=== PATIENT | female | born 1985 | race Caucasian/White ===

== ENCOUNTER 2018-08-14 22:38 | Emergency (ER) | payer BC, SELFPAY ==
--- NOTE | 2018-08-14 23:08 | EDPHYS ---
Physician Documentation [facility] Name: Melissa August Age: 33 yrs Sex: Female : 1985 Arrival Date: 08/14/2018 Time: 22:41 Bed 23 Private MD: Blas Patino ED Physician Jh Hogan HPI: 08/14 23:03 This 33 yrs old Female presents to ER via Ambulatory with complaints of jennifer Laceration to finger. 23:03 The patient or guardian reports decreased range of motion, pain, tenderness. The jennifer complaints affect the PIP of left little finger. Context: The problem was sustained at home. Onset: The symptoms/episode began/occurred just prior to arrival. Modifying factors: The symptoms are alleviated by elevation, holding still, ice/coldpack to affected area, the symptoms are aggravated by movement, dependent position. Associated signs and symptoms: The patient has no apparent associated signs or symptoms. Severity of symptoms: At their worst the symptoms were mild, in the emergency department the symptoms are unchanged. The patient has not experienced similar symptoms in the past. 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 - Social history:: Smoking status: Patient uses tobacco products, denies chronic smoking, but will smoke occasionally. - Ebola Screening: : No symptoms or risks identified at this time. - Family history:: not pertinent. ROS: 23:03 Constitutional: Negative for fever, chills, and weight loss, Eyes: Negative for injury, jennifer pain, redness, and discharge, ENT: Negative for injury, pain, and discharge, Neck: Negative for injury, pain, and swelling, Cardiovascular: Negative for chest pain, palpitations, and edema, Respiratory: Negative for shortness of breath, cough, wheezing, and pleuritic chest pain, Abdomen/GI: Negative for abdominal pain, nausea, vomiting, diarrhea, and constipation, Back: Negative for injury and pain, : Negative for injury, bleeding, discharge, and swelling, Skin: Negative for injury, rash, and discoloration, Neuro: Negative for headache, weakness, numbness, tingling, and seizure, Psych: Negative for depression, anxiety, suicide ideation, homicidal ideation, and hallucinations, Allergy/Immunology: Negative for hives, rash, and allergies, Endocrine: Negative for neck swelling, polydipsia, polyuria, polyphagia, and marked weight changes, Hematologic/Lymphatic: Negative for swollen nodes, abnormal bleeding, and unusual bruising. 23:03 MS/extremity: Positive for decreased range of motion, pain, swelling, tenderness, of the dorsal aspect of middle phalanx of left little finger. Exam: 23:03 Constitutional: This is a well developed, well nourished patient who is awake, alert, jennifer and in no acute distress. Head/Face: Normocephalic, atraumatic. Eyes: Pupils equal round and reactive to light, extra-ocular motions intact. Lids and lashes normal. Conjunctiva and sclera are non-icteric and not injected. Cornea within normal limits. Periorbital areas with no swelling, redness, or edema. ENT: Nares patent. No nasal discharge, no septal abnormalities noted. Tympanic membranes are normal and external auditory canals are clear. Oropharynx with no redness, swelling, or masses, exudates, or evidence of obstruction, uvula midline. Mucous membranes moist. Neck: Trachea midline, no thyromegaly or masses palpated, and no cervical lymphadenopathy. Supple, full range of motion without nuchal rigidity, or vertebral point tenderness. No Meningismus. Chest/axilla: Normal chest wall appearance and motion. Nontender with no deformity. No lesions are appreciated. Cardiovascular: Regular rate and rhythm with a normal S1 and S2. No gallops, murmurs, or rubs. Normal PMI, no JVD. No pulse deficits. Respiratory: Lungs have equal breath sounds bilaterally, clear to auscultation and percussion. No rales, rhonchi or wheezes noted. No increased work of breathing, no retractions or nasal flaring. Abdomen/GI: Soft, non-tender, with normal bowel sounds. No distension or tympany. No guarding or rebound. No evidence of tenderness throughout. Back: No spinal tenderness. No costovertebral tenderness. Full range of motion. Female : Normal external genitalia. Skin: Warm, dry with normal turgor. Normal color with no rashes, no lesions, and no evidence of cellulitis. Neuro: Awake and alert, GCS 15, oriented to person, place, time, and situation. Cranial nerves II-XII grossly intact. Motor strength 5/5 in all extremities. Sensory grossly intact. Cerebellar exam normal. Normal gait. Psych: Awake, alert, with orientation to person, place and time. Behavior, mood, and affect are within normal limits. 23:03 Musculoskeletal/extremity: Extremities: noted in the dorsal aspect of middle phalanx of left little finger: decreased ROM, pain. Vital Signs: 22:55 BP 133 / 99; Pulse 103; Resp 16 S; Temp 98.5(O); Pulse Ox 99% on R/A; Weight 95.25 kg bb (R); Height 5 ft. 4 in. (162.56 cm) (R); Pain 6/10; 23:57 BP 133 / 71; Pulse 92; Resp 16; Pulse Ox 98% on R/A; Pain 5/10; aa1 22:55 Body Mass Index 36.05 (95.25 kg, 162.56 cm) MDM: 22:54 Patient medically screened. [facility] 23:05 Data reviewed: vital signs, nurses notes, radiologic studies. 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 Exp: aa1 05/13/2020. Lot #: [id number]. } Route: IM; Site: right deltoid; 23:12 Drug: Anderson 10 mg-325 mg 1 tabs Route: PO; aa1 Disposition: 08/14/18 23:08 Discharged to Home. Impression: Laceration without foreign body of left hand, Contusion of left hand. - Condition is Stable. - Discharge Instructions: Contusion, Laceration Care, Adult, Contusion, [id number], Laceration Care, Adult, [id number]. - Prescriptions for Tylenol- Codeine #3 300-30 mg Oral Tablet - take 2 tablets by ORAL route every 6 hours As needed; 26 tablet. Motrin IB 200 mg Oral Tablet - take 2 tablet by ORAL route every 6 hours As needed as needed with food; 30 tablet. - Medication Reconciliation Form, Thank You Letter, Antibiotic Education, Prescription Opioid Use form. - Follow up: Blas Patino; When: 2 - 3 days; Reason: Recheck today's complaints, Continuance of care, Re-evaluation by your physician. - Problem is new. - Symptoms have improved. Signatures: Dispatcher [employer] EDZuleika Salcedo RN RN aa1 Jh Hogan MD MD cha Ballard, Brenda, RN RN bb Corrections: (The following items were deleted from the chart) 23:59 23:08 08/14/2018 23:08 Discharged to Home. Impression: Laceration without foreign body aa1 of left hand; Contusion of left hand. Condition is Stable. Discharge Instructions: Contusion, Laceration Care, Adult, Contusion, [id number], Laceration Care, Adult, [id number]. Prescriptions for Tylenol-Codeine #3 300-30 mg Oral Tablet - take 2 tablets by ORAL route every 6 hours As needed; 26 tablet, Motrin IB 200 mg Oral Tablet - take 2 tablet by ORAL route every 6 hours As needed as needed with food; 30 tablet. and Forms are Medication Reconciliation Form, Thank You Letter, Antibiotic Education, Prescription Opioid Use. Follow up: Blas Patino; When: 2 - 3 days; Reason: Recheck today's complaints, Continuance of care, Re-evaluation by your physician. Problem is new. Symptoms have improved. jennifer
--- NOTE | 2018-08-14 23:08 | ER ---
Nurse's Notes [facility] Name: Melissa August Age: 33 yrs Sex: Female : 1985 Arrival Date: 08/14/2018 Time: 22:41 Bed 23 Private MD: Blas Patino Diagnosis: Laceration without foreign body of left hand;Contusion of left hand Presentation: 08/14 22:52 Presenting complaint: Patient states: she was washing dishes earlier tonight and broke bb a place cutting her left pinky finger, pt thinks she may have something in the cut because it is very painful and is swelling. Transition of care: patient was not received from another setting of care. Onset of symptoms was August 14, 2018. Risk Assessment: Do you want to hurt yourself or someone else? Patient reports no desire to harm self or others. Initial Sepsis Screen: Does the patient meet any 2 criteria? No. Patient's initial sepsis screen is negative. Does the patient have a suspected source of infection? No. Patient's initial sepsis screen is negative. Care prior to arrival: None. 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 - Social history:: Smoking status: Patient uses tobacco products, denies chronic smoking, but will smoke occasionally. - Ebola Screening: : No symptoms or risks identified at this time. - Family history:: not pertinent. Screenin:00 Abuse screen: Denies threats or abuse. Denies injuries from another. Nutritional aa1 screening: No deficits noted. Tuberculosis screening: No symptoms or risk factors identified. Fall Risk None identified. Assessment: 23:00 General: Appears in no apparent distress. comfortable, Behavior is calm, cooperative, aa1 appropriate for age. Pain: Complains of pain in left little finger. Neuro: Level of Consciousness is awake, alert, obeys commands, Oriented to person, place, time, situation, Moves all extremities. Full function. Respiratory: Airway is patent Respiratory effort is even, unlabored, Respiratory pattern is regular, symmetrical. GI: No signs and/or symptoms were reported involving the gastrointestinal system. : No signs and/or symptoms were reported regarding the genitourinary system. EENT: No signs and/or symptoms were reported regarding the EENT system. Derm: Skin is intact, is healthy with good turgor, Skin is pink, warm \T\ dry. Musculoskeletal: Circulation, motion, and sensation intact. Capillary refill < 3 seconds. Injury Description: Laceration sustained to PIP of left little finger is superficial, 0.5 to 2.5 cm long, not bleeding. 23:57 Reassessment: Patient appears in no apparent distress at this time. Patient is alert, aa1 oriented x 3, equal unlabored respirations, skin warm/dry/pink. Discussed d/c \T\ f/u instructions with pt \T\ family; denies questions or concerns at this time. Vital Signs: 22:55 BP 133 / 99; Pulse 103; Resp 16 S; Temp 98.5(O); Pulse Ox 99% on R/A; Weight 95.25 kg bb (R); Height 5 ft. 4 in. (162.56 cm) (R); Pain 6/10; 23:57 BP 133 / 71; Pulse 92; Resp 16; Pulse Ox 98% on R/A; Pain 5/10; aa1 22:55 Body Mass Index 36.05 (95.25 kg, 162.56 cm) ED Course: 22:41 Patient arrived in ED. ds1 22:42 Blas Patino MD is Private Physician. ds1 22:54 Triage completed. bb 22:54 Jh Hogan MD is Attending Physician. jennifer 22:55 Arm band placed on Patient placed in an exam room, on a stretcher, on pulse oximetry. bb 22:56 Zuleika Castelan RN is Primary Nurse. aa1 23:00 Patient has correct armband on for positive identification. Bed in low position. Call aa1 light in reach. Pulse ox on. NIBP on. 23:08 Blas Patino MD is Referral Physician. jennifer 23:48 Hand Left 3 View XRAY In Process Unspecified. EDMS 23:57 No provider procedures requiring assistance completed. Patient did not have IV access aa1 during this emergency room visit. 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 Exp: aa1 05/13/2020. Lot #: [id number]. } Route: IM; Site: right deltoid; 23:12 Drug: Laurel 10 mg-325 mg 1 tabs Route: PO; aa1 Outcome: 23:08 Discharge ordered by . jennifer 23:57 Discharged to home ambulatory, with significant other. aa1 23:57 Condition: good 23:57 Discharge instructions given to patient, significant other, Instructed on discharge instructions, follow up and referral plans. medication usage, Demonstrated understanding of instructions, follow-up care, medications, Prescriptions given X 2. 23:59 Patient left the ED. aa1 Signatures: Dispatcher [employer] EDZuleika Salcedo RN RN aa1 Jh Hogan MD MD cha Sanford, Demi ds1 Lissett Blair RN RN bb
[2018-08-14] MEDS ORDERED: HYDROCODONE/APAP 10/325 TAB ONE (23:26)
[2018-08-14] MEDS ORDERED: TETANUS & DIPHTHERIA TOX,ADULT 0.5 ML VIAL ONE (23:26)
--- NOTE | 2018-08-15 09:06 | RAD REPORT ---
EXAM DESCRIPTION: RAD - Hand Left 3 View - 08/14/2018 11:48 pm CLINICAL HISTORY: Left hand pain, trauma, laceration dorsal margin fifth PIP joint COMPARISON: None. FINDINGS: No fracture, dislocation or periosteal reaction noted. No foreign body or other soft tissu e abnormality. IMPRESSION: Negative left hand examination.
== END 2018-08-14 23:59 | disposition home or self-care (01) ==
LOC: ER 22:38
DX: S61.217A Laceration without foreign body of left little finger without damage to nail, initial encounter (principal); S60.222A Contusion of left hand, initial encounter; W45.8XXA Other foreign body or object entering through skin, initial encounter; Y93.9 Activity, unspecified; Y92.009 Unspecified place in unspecified non-institutional (private) residence as the place of occurrence of the external cause; Z23 Encounter for immunization; Z72.0 Tobacco use
CPT/HCPCS: 90471; 90714; 99284

== ENCOUNTER 2018-09-15 21:39 | Emergency (ER) | payer SELFPAY ==
[2018-09-15 22:36] LABS: Absolute Lymphocytes (CBC) 1.8 K/uL (0.7-4.9); Basophils % 1.1 % (0-1.3); Hematocrit 36.1 % (36.0-45.0); Lymphocytes % 15.8 % (15.3-44.8); MPV 8.6 fL (7.6-11.3)
[2018-09-15] MEDS ORDERED: NA CHLORIDE 0.9% 1,000 ML ONE (22:44)
[2018-09-15 22:48] LABS: Albumin 3.4 g/dL (3.4-5.0); Bilirubin Direct 0.3 mg/dL (0-0.2); Bilirubin Total 0.6 mg/dL (0.2-1.0); Potassium 3.9 mmol/L (3.5-5.1); Protein, Total 8.6 g/dL (6.4-8.2)
[2018-09-15] MEDS ORDERED: ONDANSETRON 4 MG/2 ML VIAL ONE ×2 (23:39→23:54)
[2018-09-15 23:40] LABS: Urine Blood NEGATIVE (NEG); Urine Glucose NEGATIVE (NEG); Urine Protein NEGATIVE (NEG)
[2018-09-15 23:49] LABS: Urine Bacteria <20 /HPF (<20); Urine Culture Reflex Order NOT NEEDED; Urine RBC <5 /HPF (NONE SEEN)
[2018-09-15] MEDS ORDERED: CEFTRIAXONE/SWI 1gm 1 GM/10 ML SYR ONE (23:50)
[2018-09-16] MEDS ORDERED: PROMETHAZINE 25 MG/ML VIAL ONE (00:41)
--- NOTE | 2018-09-16 01:50 | ER ---
Nurse's Notes [facility] Name: Melissa August Age: 33 yrs Sex: Female : 1985 Arrival Date: 09/15/2018 Time: 21:43 Bed 24 Private MD: Diagnosis: Dysuria;Unspecified abdominal pain;Nausea and vomiting Presentation: 09/15 21:45 Presenting complaint: Patient states: "I've had a UTI for awhile and now I'm having aj1 headaches, nausea, and chills" Reports fever and abdominal cramps that has been intermittent for the past 2 weeks. Transition of care: patient was not received from another setting of care. Onset of symptoms was August 2018. Risk Assessment: Do you want to hurt yourself or someone else? Patient reports no desire to harm self or others. Initial Sepsis Screen: Does the patient meet any 2 criteria? HR > 90 bpm. No. Patient's initial sepsis screen is negative. Does the patient have a suspected source of infection? Yes: Dysuria/Frequency/Urgency/UTI. Care prior to arrival: None. 21:45 Method Of Arrival: Ambulatory [facility] 21:45 Acuity: ARCELIA 3 aj1 Triage Assessment: 21:47 Headache History: Denies prior headaches. General: Appears in no apparent distress. aj1 comfortable, Behavior is calm, cooperative, appropriate for age. Pain: Complains of pain in forehead and suprapubic area Pain currently is 5 out of 10 on a pain scale. Pain began 2 weeks ago Also complains of nausea. Neuro: Level of Consciousness is awake, alert, obeys commands, Oriented to person, place, time, situation. Cardiovascular: Patient's skin is warm and dry. Respiratory: Airway is patent Respiratory effort is even, unlabored, Respiratory pattern is regular, symmetrical. 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 - Social history:: Smoking status: Patient/guardian denies using tobacco. - Ebola Screening: : Patient denies travel to an Ebola-affected area in the 21 days before illness onset. Screenin:47 Abuse screen: Denies threats or abuse. Denies injuries from another. Nutritional rv screening: No deficits noted. Tuberculosis screening: No symptoms or risk factors identified. Fall Risk None identified. Assessment: 22:31 General: Appears in no apparent distress. comfortable, Behavior is calm, cooperative. rv Pain: Complains of pain in head. Neuro: Level of Consciousness is awake, alert, obeys commands, Oriented to person, place, time, situation. Cardiovascular: Patient's skin is warm and dry. Respiratory: Airway is patent. GI: No signs and/or symptoms were reported involving the gastrointestinal system. : No signs and/or symptoms were reported regarding the genitourinary system. EENT: No signs and/or symptoms were reported regarding the EENT system. Derm: Skin is intact. Musculoskeletal: No signs and/or symptoms reported regarding the musculoskeletal system. 09/16 00:55 Reassessment: Patient appears in no apparent distress at this time. Patient and/or rv family updated on plan of care and expected duration. Pain level reassessed. Patient is alert, oriented x 3, equal unlabored respirations, skin warm/dry/pink. awaiting CT scan report. Vital Signs: 09/15 21:47 BP 141 / 84; Pulse 110; Resp 20; Temp 98.8; Pulse Ox 99% on R/A; Weight 97.52 kg (R); aj1 Height 5 ft. 4 in. (162.56 cm) (R); Pain 5/10; 23:47 BP 130 / 89; Pulse 98; Resp 16; Pulse Ox 98% on R/A; rv 09/16 00:00 BP 124 / 88; Pulse 95; Resp 15; Pulse Ox 98% on R/A; rv 00:30 BP 131 / 92; Pulse 103; Resp 14; Pulse Ox 98% on R/A; rv 01:00 BP 115 / 86; Pulse 103; Resp 16; Pulse Ox 96% on R/A; rv 01:30 BP 115 / 87; Pulse 109; Resp 16; Pulse Ox 96% on R/A; rv 09/15 21:47 Body Mass Index 36.90 (97.52 kg, 162.56 cm) aj1 ED Course: 09/15 21:43 Patient arrived in ED. mr 21:46 Triage completed. aj1 21:47 Arm band placed on Patient placed in an exam room. aj1 21:51 Neri Mak, TESSY is PHCP. pm1 21:51 Aravind Burroughs MD is Attending Physician. pm1 22:02 Joshua Olsen RN is Primary Nurse. rv 22:12 Inserted saline lock: 20 gauge in right antecubital area, using aseptic technique. rv Blood collected. 23:47 Patient has correct armband on for positive identification. Bed in low position. Call rv light in reach. Side rails up X 1. Adult w/ patient. Pulse ox on. NIBP on. 23:48 No provider procedures requiring assistance completed. rv 09/16 00:33 CT Abd/Pelvis - IV Contrast Only In Process Unspecified. EDMS 01:02 CT completed. Patient tolerated procedure well. Patient moved to CT via wheelchair. Patient moved back from CT. 01:39 IV discontinued, intact, bleeding controlled, No redness/swelling at site. Pressure rv dressing applied. Administered Medications: 09/15 22:30 Drug: NS 0.9% 1000 ml Route: IV; Rate: 1000 ml; Site: right antecubital; rv 23:46 Follow up: IV Status: Completed infusion; IV Intake: 1000ml rv 23:24 Drug: Zofran 4 mg Route: IVP; Site: right antecubital; ca1 23:46 Follow up: Response: No adverse reaction rv 23:45 Drug: Zofran 4 mg Route: IVP; Site: right antecubital; rv 09/16 00:56 Follow up: Response: No adverse reaction rv 09/15 23:46 Drug: Rocephin 1 grams Route: IV; Rate: calculated rate; Site: right antecubital; rv 09/16 00:57 Follow up: IV Status: Completed infusion rv 00:45 Drug: Phenergan 12.5 mg Route: IVP; Site: right antecubital; rv 00:56 Follow up: Response: Nausea is decreased rv Intake: 09/15 23:46 IV: 1000ml; Total: 1000ml. rv Outcome: 09/16 01:39 Discharged to home ambulatory, with family. rv Condition: good 01:49 Discharge ordered by . pm1 01:57 Discharge instructions given to patient, family, Instructed on discharge instructions, rv follow up and referral plans. medication usage, Demonstrated understanding of instructions, follow-up care, medications, Prescriptions given X 3. 01:57 Patient left the ED. rv Signatures: Dispatcher [employer] EDMary Duran, RN RN aj1 Germaine Suarez mr Whitney, Neri Navarro, TESSY MACHINE DESIGNER pm1 Joshua Olsen, ESTRELLA RN rv Jazlyn Smith RN RN ca1
--- NOTE | 2018-09-16 01:50 | EDPHYS ---
Physician Documentation [facility] Name: Melissa August Age: 33 yrs Sex: Female : 1985 Arrival Date: 09/15/2018 Time: 21:43 Bed 24 Private MD: ED Physician Aravind Burroughs HPI: 09/15 22:15 This 33 yrs old Female presents to ER via Ambulatory with complaints of pm1 Urinary Problem, Headache, Nausea. 22:15 The patient presents with urinary symptoms, frequency. Onset: The symptoms/episode pm1 began/occurred 2 week(s) ago. Modifying factors: The symptoms are alleviated by nothing, the symptoms are aggravated by nothing. Associated signs and symptoms: Pertinent positives: nausea, suprapubic abdominal cramping, subjective fever, Pertinent negatives: constipation, diarrhea, vomiting. Severity of symptoms: in the emergency department the symptoms are actually worse. The patient has experienced similar episodes in the past, a few times, and the symptoms today are exactly the same, to previous UTI. 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 - Social history:: Smoking status: Patient/guardian denies using tobacco. - Ebola Screening: : Patient denies travel to an Ebola-affected area in the 21 days before illness onset. ROS: 22:15 Positive for urinary frequency, Negative for flank pain. pm1 22:15 Constitutional: Negative for fever, chills, and weight loss, Neck: Negative for injury, pain, and swelling, Cardiovascular: Negative for chest pain, palpitations, and edema, Respiratory: Negative for shortness of breath, cough, wheezing, and pleuritic chest pain. 22:15 Back: Negative for injury and pain, MS/Extremity: Negative for injury and deformity, Skin: Negative for injury, rash, and discoloration. 22:15 Neuro: Negative for headache, weakness, numbness, tingling, and seizure. 22:15 Abdomen/GI: Positive for abdominal pain, nausea, of the suprapubic area, Negative for diarrhea, constipation. Exam: 22:15 Constitutional: This is a well developed, well nourished patient who is awake, alert, pm1 and in no acute distress. Head/Face: Normocephalic, atraumatic. Neck: Trachea midline, no thyromegaly or masses palpated, and no cervical lymphadenopathy. Supple, full range of motion without nuchal rigidity, or vertebral point tenderness. No Meningismus. Chest/axilla: Normal chest wall appearance and motion. Nontender with no deformity. No lesions are appreciated. Cardiovascular: Regular rate and rhythm with a normal S1 and S2. No gallops, murmurs, or rubs. Normal PMI, no JVD. No pulse deficits. Respiratory: Lungs have equal breath sounds bilaterally, clear to auscultation and percussion. No rales, rhonchi or wheezes noted. No increased work of breathing, no retractions or nasal flaring. Back: No spinal tenderness. No costovertebral tenderness. Full range of motion. Skin: Warm, dry with normal turgor. Normal color with no rashes, no lesions, and no evidence of cellulitis. MS/ Extremity: Pulses equal, no cyanosis. Neurovascular intact. Full, normal range of motion. 22:15 Abdomen/GI: Inspection: abdomen appears normal, Bowel sounds: normal, Palpation: soft, mild abdominal tenderness, in the suprapubic area, mass, is not appreciated, rebound tenderness, is not appreciated. 22:15 Neuro: Orientation: is normal, Cranial nerves: CN II- XII are normal as tested, Motor: is normal, moves all fours, Sensation: is normal, no obvious gross deficits. Vital Signs: 21:47 BP 141 / 84; Pulse 110; Resp 20; Temp 98.8; Pulse Ox 99% on R/A; Weight 97.52 kg (R); aj1 Height 5 ft. 4 in. (162.56 cm) (R); Pain 5/10; 23:47 BP 130 / 89; Pulse 98; Resp 16; Pulse Ox 98% on R/A; rv 09/16 00:00 BP 124 / 88; Pulse 95; Resp 15; Pulse Ox 98% on R/A; rv 00:30 BP 131 / 92; Pulse 103; Resp 14; Pulse Ox 98% on R/A; rv 01:00 BP 115 / 86; Pulse 103; Resp 16; Pulse Ox 96% on R/A; rv 01:30 BP 115 / 87; Pulse 109; Resp 16; Pulse Ox 96% on R/A; rv 09/15 21:47 Body Mass Index 36.90 (97.52 kg, 162.56 cm) aj1 MDM: 09/15 22:11 Patient medically screened. pm1 09/16 01:47 Data reviewed: vital signs. Data interpreted: Pulse oximetry: on room air is 96 %. pm1 Interpretation: normal. Counseling: I had a detailed discussion with the patient and/or guardian regarding: the historical points, exam findings, and any diagnostic results supporting the discharge/admit diagnosis, lab results, radiology results, the need for outpatient follow up, to return to the emergency department if symptoms worsen or persist or if there are any questions or concerns that arise at home. 01:47 ED course: Negative for acute changes CT abd/pelvis and urine micro negative. Will give pm1 patient pain medications and antiemetic. Will wait for pending urine culture prior to antibiotic therapy. . 09/15 22:15 Order name: Basic Metabolic Panel; Complete Time: 23:21 pm1 09/15 22:15 Order name: CBC with Diff; Complete Time: 23:21 pm1 09/15 22:15 Order name: Creatinine for Radiology; Complete Time: 23:21 pm1 09/15 22:15 Order name: Hepatic Function; Complete Time: 23:21 pm1 09/15 22:15 Order name: Urine Microscopic Only; Complete Time: 23:54 pm1 09/15 22:15 Order name: Urine Dipstick--Ancillary (enter results); Complete Time: 23:54 cm6 09/15 22:15 Order name: Urine --Ancillary (enter results); Complete Time: 23:54 cm6 09/15 23:21 Order name: CT Abd/Pelvis - IV Contrast Only pm1 09/15 22:15 Order name: IV Saline Lock; Complete Time: 22:30 pm1 09/15 22:15 Order name: Labs collected and sent; Complete Time: 22:30 pm1 09/15 22:15 Order name: Urine Dipstick-Ancillary (obtain specimen); Complete Time: 22:25 pm1 09/15 22:15 Order name: Urine Test (obtain specimen); Complete Time: 22:25 pm1 Administered Medications: 09/15 22:30 Drug: NS 0.9% 1000 ml Route: IV; Rate: 1000 ml; Site: right antecubital; rv 23:46 Follow up: IV Status: Completed infusion; IV Intake: 1000ml rv 23:24 Drug: Zofran 4 mg Route: IVP; Site: right antecubital; ca1 23:46 Follow up: Response: No adverse reaction rv 23:45 Drug: Zofran 4 mg Route: IVP; Site: right antecubital; rv 09/16 00:56 Follow up: Response: No adverse reaction rv 09/15 23:46 Drug: Rocephin 1 grams Route: IV; Rate: calculated rate; Site: right antecubital; rv 09/16 00:57 Follow up: IV Status: Completed infusion rv :45 Drug: Phenergan 12.5 mg Route: IVP; Site: right antecubital; rv 00:56 Follow up: Response: Nausea is decreased rv Disposition: 03:33 Co-signature as Attending Physician, Aravind Burroughs MD. rn Disposition: 09/16/18 01:49 Discharged to Home. Impression: Dysuria, Unspecified abdominal pain, Nausea and vomiting. - Condition is Stable. - Discharge Instructions: Abdominal Pain, Adult, Dysuria, Nausea and Vomiting, Adult. - Prescriptions for Bentyl 20 mg Oral Tablet - take 1 tablet by ORAL route every 6 hours As needed; 20 tablet. Tylenol- Codeine #3 300-30 mg Oral Tablet - take 2 tablets by ORAL route every 6 hours As needed; 20 tablet. promethazine 25 mg Oral Tablet - take 1 tablet by ORAL route every 6 hours As needed; 20 tablet. - Medication Reconciliation Form, Thank You Letter, Antibiotic Education, Prescription Opioid Use form. - Follow up: Emergency Department; When: As needed; Reason: Worsening of condition. Follow up: Private Physician; When: 2 - 3 days; Reason: Recheck today's complaints, Continuance of care, Re-evaluation by your physician. - Problem is new. - Symptoms have improved. Signatures: Dispatcher [employer] EDMary Duran RN RN aj1 Aravind Burroughs MD MD rn Marinas, Patrick, BUSINESS PROCESS REPRESENTATIVE BUSINESS PROCESS REPRESENTATIVE pm1 Joshua Olsen RN RN rv AcobJazlyn RN RN ca1 Corrections: (The following items were deleted from the chart) :57 01:49 09/16/2018 01:49 Discharged to Home. Impression: Dysuria; Unspecified abdominal rv pain; Nausea and vomiting. Condition is Stable. Forms are Medication Reconciliation Form, Thank You Letter, Antibiotic Education, Prescription Opioid Use. Follow up: Emergency Department; When: As needed; Reason: Worsening of condition. Follow up: Private Physician; When: 2 - 3 days; Reason: Recheck today's complaints, Continuance of care, Re-evaluation by your physician. Problem is new. Symptoms have improved. pm1
--- NOTE | 2018-09-16 11:41 | RAD REPORT ---
EXAM DESCRIPTION: CT - Abdomen Pelvis W Contrast - 09/16/2018 4:57 am CLINICAL HISTORY: 33-year-old female with abdominal pain, lower abdominal cramping TECHNIQUE: Axial CT imaging of the abdomen and pelvis was performed following the administration of intravenous contrast.. Sagittal and coronal reconstructed images were then performed. The CT stud y is performed according to ALARA (as low as reasonably achievable) or ALARA/IMAGE GENTLY, with autom atic adjustment of mA and/or kV according to patient size. Performed on: 09/16/2018 at 12:10 AM. CLINICAL HISTORY: None FINDINGS: Lung bases: The lung bases are clear. There is minimal right basilar atelectasis and/or fi brosis. Liver: The liver is enlarged and measures 20 cm in craniocaudal dimension. No focal hepatic abnormali ties are identified. Liver attenuation is within normal limits. Spleen: The spleen is enlarged and measures 16 cm in craniocaudal dimension. No focal splenic abnorma lities are identified. Gallbladder and bile duct: The gallbladder is surgically absent. There is no biliary ductal dilatat ion. Pancreas: The pancreas is grossly normal in size and configuration. Adrenal Glands: The adrenal glands are normal in size and configuration. Kidneys: The kidneys are normal in size and configuration. There is no evidence of hydronephrosis. Th ere is a punctate nonobstructing calcification in the lower pole of the right kidney. No definite ernesto id or cystic renal mass lesions are identified. Stomach: The stomach is grossly normal. There is no definite hiatal hernia. Bowel: The bowel gas pattern is non specific and non obstructive. Appendix: There is no CT evidence to suggest acute appendicitis. Free air: There is no evidence of free air. Free fluid: There is no evidence of free fluid. Vasculature: The aorta is normal in caliber and contour. 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 Lymphadenopathy: No pathologic lymphadenopathy is identified. Bladder: The bladder is partially distended and smooth in contour. Reproductive: The uterus is retroverted. There is a 4.7 x 4.1 x 5.5 cm benign-appearing right adnexal cyst presumably ovarian in nature. There is an approximately 3.0 x 2.4 cm left adnexal cyst. Bones: No acute osseous abnormalities are identified. Soft tissues: No focal soft tissue abnormalities are identified. IMPRESSION: 1. Approximately 5.5 cm benign-appearing right adnexal cyst. Follow-up pelvic ultrasound in 6-12 weeks. 2. Nonobstructing punctate calcification in the lower pole of the right kidney. 3. Hepatosplenomegaly. 4. Remote cholecystectomy. 5. 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 6. Retroverted uterus. Electronically signed by: Charlotte Michael DO 09/16/2018 1:12 AM CDT Due to temporary technical issues with the PACS/Fluency reporting system, reports are being signed by the in house radiologist as a courtesy to ensure prompt reporting. The interpreting radiologist is f ully responsible for the content of the report.
== END 2018-09-16 01:57 | disposition home or self-care (01) ==
LOC: ER 21:39
DX: R10.9 Unspecified abdominal pain (principal); R11.2 Nausea with vomiting, unspecified; Z86.718 Personal history of other venous thrombosis and embolism
CPT/HCPCS: 36415; 74177; 80048; 80076; 81003; 81015; 81025; 85025; 96361; 96365; 96375; 99284; J0696; J2405; J2550; J7030; Q9967

== ENCOUNTER 2018-09-24 01:17 | Observation (INO) | payer SELFPAY ==
[2018-09-24] MEDS ORDERED: FENTANYL CITR 100 MCG/2 ML ONE (02:27)
[2018-09-24 02:41] LABS: Absolute Lymphocytes (CBC) 1.6 K/uL (0.7-4.9); Basophils % 0.5 % (0-1.3); Hematocrit 34.6 % (36.0-45.0); Lymphocytes % 15.5 % (15.3-44.8); MPV 8.7 fL (7.6-11.3); RBC Red Blood Cell Count 3.82 M/uL (3.86-4.86)
[2018-09-24 02:42] LABS: Protime INR 1.24
[2018-09-24 03:00] LABS: Potassium 3.5 mmol/L (3.5-5.1); Sodium Level 139 mmol/L (136-145)
[2018-09-24 03:01] LABS: BUN Blood Urea Nitrogen 5 mg/dL (7-18); Bicarbonate 26 mmol/L (21-32); Glucose Level 114 mg/dL (74-106); Magnesium 2.3 mg/dL (1.8-2.4); NT PRO-BNP 72 pg/mL (<125)
[2018-09-24] MEDS ORDERED: ENOXAPARIN 100 MG/ML SYR SQ ONE (03:21)
--- NOTE | 2018-09-24 03:23 | ER ---
Nurse's Notes [facility] Name: Melissa August Age: 33 yrs Sex: Female : 1985 Arrival Date: 09/24/2018 Time: 01:21 Bed 6 Private MD: Blas Patino Diagnosis: Chest pain, unspecified Presentation: 09/24 01:32 Presenting complaint: Patient states: Pain to left rib area since last Tuesday, worse on lp1 respiration; Complaint of nausea. Transition of care: patient was not received from another setting of care. Onset of symptoms was September 24, 2018. Risk Assessment: Do you want to hurt yourself or someone else? Patient reports no desire to harm self or others. Initial Sepsis Screen: Does the patient meet any 2 criteria? No. Patient's initial sepsis screen is negative. Does the patient have a suspected source of infection? No. Patient's initial sepsis screen is negative. Care prior to arrival: None. 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 - Social history:: Smoking status: Patient/guardian denies using tobacco. - Ebola Screening: : No symptoms or risks identified at this time. Screenin:40 Abuse screen: Denies threats or abuse. Nutritional screening: No deficits noted. tl2 Tuberculosis screening: No symptoms or risk factors identified. Fall Risk None identified. Assessment: 01:40 General: Appears in no apparent distress. uncomfortable, Behavior is calm, cooperative, tl2 appropriate for age. Pain: Complains of pain in left mid back Pain does not radiate. Pain currently is 4 out of 10 on a pain scale. Aggravated by increased activity, breathing. Neuro: Level of Consciousness is awake, alert, obeys commands, Oriented to person, place, time, situation. Cardiovascular: Denies chest pain. Respiratory: Airway is patent Respiratory effort is even, unlabored, Respiratory pattern is regular, symmetrical. GI: No signs and/or symptoms were reported involving the gastrointestinal system. : No signs and/or symptoms were reported regarding the genitourinary system. Derm: Skin is pink, warm \\T\\ dry. 02:30 Reassessment: Patient appears in no apparent distress at this time. Patient is alert, lp1 oriented x 3, equal unlabored respirations, skin warm/dry/pink. 03:30 Reassessment: Patient appears in no apparent distress at this time. Patient and/or lp1 family updated on plan of care and expected duration. Pain level reassessed. Patient aware of pending admission. Vital Signs: 01:36 BP 118 / 92; Pulse 119; Resp 18; Temp 98.8(O); Pulse Ox 98% on R/A; Weight 95.25 kg; lp1 Height 5 ft. 4 in. (162.56 cm); Pain 4/10; 02:28 BP 105 / 66; Pulse 110; Resp 18; Pulse Ox 97% on R/A; tl2 03:00 BP 112 / 77; Pulse 106; Resp 18; Pulse Ox 97% on R/A; lp1 03:30 BP 123 / 85; Pulse 114; Resp 18; Pulse Ox 98% on R/A; lp1 04:05 BP 126 / 87; Pulse 112; Resp 18; Pulse Ox 98% on R/A; tl2 01:36 Body Mass Index 36.05 (95.25 kg, 162.56 cm) lp1 ED Course: 01:20 Inserted saline lock: 22 gauge in right antecubital area, using aseptic technique. tl2 Blood collected. placed by ESTRELLA Balbuena. 01:21 Patient arrived in ED. es 01:21 Blas Patino MD is Private Physician. es 01:36 Triage completed. lp1 01:36 Arm band placed on left wrist. lp1 01:40 Patient has correct armband on for positive identification. Bed in low position. Call tl2 light in reach. Side rails up X 1. 01:42 Austin Kramer PA is PHCP. jr8 01:42 Jh Hogan MD is Attending Physician. jr8 02:25 XRAY Chest (1 view) In Process Unspecified. EDMS 02:33 Hopper, Myrna, RN is Primary Nurse. lp1 02:48 Notified Nurse Practitioner and/or Physician Legal Support Manager of a critical lab result(s), d fc dimer of [phone]. 03:03 X-ray completed. Portable x-ray completed in exam room. Patient tolerated procedure 1 well. 03:22 Silvio Nunez MD is Hospitalizing Provider. jr8 03:34 No provider procedures requiring assistance completed. Patient admitted, IV remains in lp1 place. Administered Medications: 02:33 Drug: fentaNYL (PF) 25 mcg Route: IVP; Site: right antecubital; lp1 03:35 Follow up: Response: No adverse reaction lp1 03:26 Drug: Lovenox 1 mg/kg Route: Sub-Q; Site: right lower abdomen; lp1 05:23 Follow up: Response: No adverse reaction tl2 04:16 Drug: Zofran 4 mg Route: IVP; Site: right antecubital; tl2 05:23 Follow up: Response: No adverse reaction; Nausea is decreased tl2 Outcome: 03:22 Decision to Hospitalize by Provider. jr8 03:35 Condition: stable lp1 03:35 Instructed on the need for admit. 05:21 Admitted to Tele accompanied by nurse, family with patient, via stretcher, room 407, tl2 with chart, Report called to ESTRELLA Frederick 05:24 Patient left the ED. tl2 Signatures: Dispatcher [employer] Brittany Preston [facility] Laly Metcalf RN RN Myrna Hopper, ESTRELLA RN lp1 Austin Kramer PA PA 8 Dariana Mcintosh RN RN tl2
--- NOTE | 2018-09-24 03:24 | EDPHYS ---
Physician Documentation [facility] Name: Melissa August Age: 33 yrs Sex: Female : 1985 Arrival Date: 09/24/2018 Time: 01:21 Bed 6 Private MD: Blas Patino ED Physician Jh Hogan HPI: 09/24 03:19 This 33 yrs old Female presents to ER via Ambulatory with complaints of chest jr8 pain. 03:19 The patient or guardian reports chest pain that is located primarily in the anterior jr8 chest wall, left. The pain does not radiate. Associated signs and symptoms: Pertinent positives: shortness of breath. The chest pain is described as sharp. Duration: The patient or guardian reports multiple episodes, that are intermittent. Modifying factors: The symptoms are alleviated by nothing. the symptoms are aggravated by deep breath. Severity of pain: At its worst the pain was moderate in the emergency department the pain is unchanged. The patient has experienced a previous episode. The patient has not recently seen a physician. Patient started with pleuritic chest pain 2 days ago. History of MTHFR gene with DVT and PE history. Currently without anticoagulation therapy . 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 - Social history:: Smoking status: Patient/guardian denies using tobacco. - Ebola Screening: : No symptoms or risks identified at this time. ROS: 03:19 Eyes: Negative for injury, pain, redness, and discharge, ENT: Negative for injury, jr8 pain, and discharge, Neck: Negative for injury, pain, and swelling, Abdomen/GI: Negative for abdominal pain, nausea, vomiting, diarrhea, and constipation, Back: Negative for injury and pain, MS/Extremity: Negative for injury and deformity, Skin: Negative for injury, rash, and discoloration, Neuro: Negative for headache, weakness, numbness, tingling, and seizure. 03:19 Cardiovascular: Positive for chest pain, Negative for edema, orthopnea, palpitations, paroxysmal nocturnal dyspnea. 03:19 Respiratory: Positive for shortness of breath. Exam: 03:19 Eyes: Pupils equal round and reactive to light, extra-ocular motions intact. Lids and jr8 lashes normal. Conjunctiva and sclera are non-icteric and not injected. Cornea within normal limits. Periorbital areas with no swelling, redness, or edema. ENT: Nares patent. No nasal discharge, no septal abnormalities noted. Tympanic membranes are normal and external auditory canals are clear. Oropharynx with no redness, swelling, or masses, exudates, or evidence of obstruction, uvula midline. Mucous membranes moist. Neck: Trachea midline, no thyromegaly or masses palpated, and no cervical lymphadenopathy. Supple, full range of motion without nuchal rigidity, or vertebral point tenderness. No Meningismus. Respiratory: Lungs have equal breath sounds bilaterally, clear to auscultation and percussion. No rales, rhonchi or wheezes noted. No increased work of breathing, no retractions or nasal flaring. Abdomen/GI: Soft, non-tender, with normal bowel sounds. No distension or tympany. No guarding or rebound. No evidence of tenderness throughout. Back: No spinal tenderness. No costovertebral tenderness. Full range of motion. Skin: Warm, dry with normal turgor. Normal color with no rashes, no lesions, and no evidence of cellulitis. MS/ Extremity: Pulses equal, no cyanosis. Neurovascular intact. Full, normal range of motion. Neuro: Awake and alert, GCS 15, oriented to person, place, time, and situation. Cranial nerves II-XII grossly intact. Motor strength 5/5 in all extremities. Sensory grossly intact. Cerebellar exam normal. Normal gait. 03:19 Cardiovascular: Rate: tachycardic, Rhythm: regular, Pulses: Pulses are 2+ in right radial artery and left radial artery. Heart sounds: normal, normal S1and S2, no S3 or S4, no murmur, no rub, no gallop, Edema: is not appreciated, JVD: is not appreciated. Vital Signs: 01:36 BP 118 / 92; Pulse 119; Resp 18; Temp 98.8(O); Pulse Ox 98% on R/A; Weight 95.25 kg; lp1 Height 5 ft. 4 in. (162.56 cm); Pain 4/10; 02:28 BP 105 / 66; Pulse 110; Resp 18; Pulse Ox 97% on R/A; tl2 03:00 BP 112 / 77; Pulse 106; Resp 18; Pulse Ox 97% on R/A; lp1 03:30 BP 123 / 85; Pulse 114; Resp 18; Pulse Ox 98% on R/A; lp1 04:05 BP 126 / 87; Pulse 112; Resp 18; Pulse Ox 98% on R/A; tl2 01:36 Body Mass Index 36.05 (95.25 kg, 162.56 cm) lp1 MDM: 01:43 Patient medically screened. jr8 03:21 Data reviewed: vital signs, nurses notes, lab test result(s), EKG, radiologic studies, jr8 plain films. Data interpreted: Pulse oximetry: on room air is 97 %. Interpretation: normal. Counseling: I had a detailed discussion with the patient and/or guardian regarding: the historical points, exam findings, and any diagnostic results supporting the discharge/admit diagnosis, lab results, radiology results, the need for further work-up and treatment in the hospital. Physician consultation: Silvio Nunez MD was called at 03:21, was contacted at 03:21, regarding admission, to the telemetry unit. and will see patient. 03:21 ED course: Due to radiology systems being down for unknown period of time. Patient will jr8 be put in obs until CT PE study can be completed and read. Patient too high risk to send home. Patient good with this decision . 09/24 01:53 Order name: Basic Metabolic Panel 8 09/24 01:53 Order name: CBC with Diff 8 09/24 01:53 Order name: Magnesium jr8 09/24 01:53 Order name: NT PRO-BNP; Complete Time: 03:10 8 09/24 01:53 Order name: PT-INR; Complete Time: 03:10 jr8 09/24 01:53 Order name: DD; Complete Time: 03:10 8 09/24 01:53 Order name: XRAY Chest (1 view) 8 09/24 01:54 Order name: Basic Metabolic Panel; Complete Time: 03:10 EDMS 09/24 01:54 Order name: CBC with Automated Diff; Complete Time: 03:10 EDMS 09/24 01:54 Order name: Magnesium; Complete Time: 03:10 EDMS 09/24 03:13 Order name: CT Chest For PE Angio jr 09/24 01:53 Order name: EKG; Complete Time: 01:54 jr8 09/24 01:53 Order name: Cardiac monitoring; Complete Time: 02:05 [facility] 09/24 01:53 Order name: EKG - Nurse/Tech; Complete Time: 02:05 [facility] 09/24 01:53 Order name: IV Saline Lock; Complete Time: 02: [facility] 09/24 01:53 Order name: Labs collected and sent; Complete Time: 02: [facility] 09/24 01:53 Order name: O2 Per Protocol; Complete Time: 02: [facility] 09/24 01:53 Order name: O2 Sat Monitoring; Complete Time: 02: [facility] 09/24 03:45 Order name: CONS Pharmacy Consult EDMS 09/24 03:45 Order name: NPO EDMS Administered Medications: 02:33 Drug: fentaNYL (PF) 25 mcg Route: IVP; Site: right antecubital; lp1 03:35 Follow up: Response: No adverse reaction lp1 03:26 Drug: Lovenox 1 mg/kg Route: Sub-Q; Site: right lower abdomen; lp1 05:23 Follow up: Response: No adverse reaction tl2 04:16 Drug: Zofran 4 mg Route: IVP; Site: right antecubital; tl2 05:23 Follow up: Response: No adverse reaction; Nausea is decreased tl2 Disposition: 09/24/18 03:22 Hospitalization ordered by Silvio Nunez for Observation. Preliminary diagnosis is Chest pain, unspecified. - Bed requested for Telemetry/MedSurg (observation). - Status is Observation. tl2 - Condition is Stable. - Problem is new. - Symptoms are unchanged. UTI on Admission? No Addendum: 09/25/2018 09:25 Co-signature as Attending Physician, Jh Hogan MD I agree with the assessment and c schmidt plan of care. Signatures: [facility] Silke Stinson RN RN mw Anderson, Corey, MD MD cha Pena, Laura RN RN lp1 Austin Kramer PA PA 8 Mcintosh, Dariana, RN RN tl2 Corrections: (The following items were deleted from the chart) 09/24 03:28 03:22 Hospitalization Ordered by Silvio Nunez MD for Observation. Preliminary mw diagnosis is Chest pain, unspecified. Bed requested for Telemetry/MedSurg (observation). Status is Observation. Condition is Stable. Problem is new. Symptoms are unchanged. UTI on Admission? No. jr8 05:24 03:28 09/24/2018 03:22 Hospitalization Ordered by Silvio Nunez MD for Observation. tl2 Preliminary diagnosis is Chest pain, unspecified. Bed requested for Telemetry/MedSurg (observation). Status is Observation. Condition is Stable. Problem is new. Symptoms are unchanged. UTI on Admission? No. mw
[2018-09-24] MEDS ORDERED: MORPHINE 2 MG/ML SYR IV PRN (03:42)
[2018-09-24] MEDS ORDERED: ONDANSETRON 4 MG/2 ML VIAL IV PRN (03:42)
[2018-09-24] MEDS ORDERED: ACETAMINOPHEN 500 MG TAB PO PRN (03:42)
[2018-09-24] MEDS: NA CHLORIDE 0.9% 1,000 ML IV SCH ×2 (04:00→05:41)
[2018-09-24 05:36] VITALS: BMI 39.4
[2018-09-24 08:46] LABS: Urine Appearance CLEAR; Urine Bilirubin NEGATIVE (NEG); Urine Blood 3+ (NEG); Urine Color YELLOW; Urine Glucose NEGATIVE (NEG); Urine Protein NEGATIVE (NEG); Urine Specific Gravity >=1.030 (1.005-1.030); Urine pH 6.5 (5.0-7.0)
[2018-09-24 08:58] LABS: Urine Bacteria <20 /HPF (<20); Urine Culture Reflex Order NOT NEEDED; Urine RBC >50 /HPF (NONE SEEN)
[2018-09-24] MEDS ORDERED: TRAMADOL HCL 50 MG TAB PO PRN (10:35)
[2018-09-24 11:15] VITALS: O2SAT 94
[2018-09-24 12:41] VITALS: BP 101/57; TEMP 97.5
--- NOTE | 2018-09-24 13:43 | RAD REPORT ---
EXAM DESCRIPTION: CT - Chest For Pe Angio - 09/24/2018 12:42 pm CLINICAL HISTORY: Chest pain COMPARISON: Chest films same date TECHNIQUE: Dynamically enhanced 3 mm thick images of the chest were obtained during administration o f approximately 150mL Isovue 370 IV contrast. Coronal and oblique MIP reconstruction images were gene rated and reviewed. Exam utilizes a protocol to evaluate the pulmonary arterial tree. All CT scans are performed using dose optimization technique as appropriate and may include automated exposure control or mA/KV adjustment according to patient size. FINDINGS: No pulmonary emboli are identified. The aorta as imaged shows no acute or suspicious finding. No pericardial thickening or effusion. No infiltrate or mass in the lung parenchyma. Atelectasis present in each lung base. No pleural effus ion or pleural thickening. No mediastinal or hilar suspicious masses. No chest wall masses or abnormal axillary lymphadenopathy. Due to a technical malfunction no reporting could be done at the time of the study and there was limi laura availability of images. Preliminary verbal report provided with images were available. Final dict ation was delayed. IMPRESSION: No pulmonary emboli identified. No other significant or suspicious findings.
--- NOTE | 2018-09-24 14:28 | RAD REPORT ---
EXAM DESCRIPTION: RAD - Chest Single View - 09/24/2018 12:42 pm CLINICAL HISTORY: Chest pain Technical malfunction is precluded timely reporting. Final dictation was delayed. COMPARISON: None. TECHNIQUE: AP portable chest image was obtained 0210 hours . FINDINGS: Lungs are clear. Heart and vasculature are normal. No measurable pleural effusion and no p neumothorax. No acute bony abnormality seen. No acute aortic findings suspected. IMPRESSION: No acute cardiopulmonary process.
--- NOTE | 2018-09-25 03:52 | P.HP ---
Certification for Inpatient Patient admitted to: Observation With expected LOS: <2 Midnights Patient will require the following post-hospital care: None Practitioner: I am a practitioner with admitting privileges, knowledge of patient current condition, hospital course, and medical plan of care. Services: Services provided to patient in accordance with Admission requirements found in Title 42 Section 412.3 of the Code of Federal Regulations Patient History Date of Service: 09/24/18 Reason for admission: Chest pain rule out acute coronary syndrome / pulmonary embolism History of Present Illness: Patient is a 33-year-old female who came to the hospital with chest discomfort. She has a history of being positive for elevated homocystine level. She was checked for the MTHFR gene which was positive. She has been on anticoagulation. She was seen by her PCP and this was discontinued a few months ago. She started having severe chest discomfort and felt like her prior episodes of pulmonary embolism. She was short of breath. She came into the ER for evaluation. Currently CT scan has been performed. There is concern she has a pulmonary embolism. Regardless, we do need to check with Hematology and see if she needs lifelong anticoagulation. Allergies No Known Allergies Allergy (Verified 09/24/18 05:13) Home Medications: Citalopram [Celexa*] 40 mg PO DAILY 09/24/18 Clotrim/Betameth Cream [Lotrisone Cream*] 1 applic TOP BID 09/24/18 - Past Medical/Surgical History Has patient received pneumonia vaccine in the past: No Diabetic: No -: DVT; PE -: DEPRESSION/ANXIETY -: GENE MUTATION "MTHFR" -: CHOLECUSTECTOMY -: 2 CS -: ECTOPIC -: TUBAL LIGATION - Family History Father Medical History: Hypertension, Diabetes Mother Medical History: Hypertension Sister Medical History: Hypertension grandparents Medical History: Diabetes - Social History Smoking Status: Former smoker Alcohol use: Yes CD- Drugs: No Caffeine use: Yes Place of Residence: Home Review of Systems 10-point ROS is otherwise unremarkable Physical Examination - Vital Signs Temperature: 97.5 F Blood Pressure: 101/57 Pulse: 90 Respirations: 16 Pulse Ox (%): 95 - Physical Exam General: Alert, In no apparent distress, Oriented x3 HEENT: Atraumatic, PERRLA, Mucous membr. moist/pink, EOMI, Sclerae nonicteric Neck: Supple, 2+ carotid pulse no bruit, No LAD, Without JVD or thyroid abnormality Respiratory: Clear to auscultation bilaterally, Normal air movement Cardiovascular: Regular rate/rhythm, Normal S1 S2, No murmurs Gastrointestinal: Normal bowel sounds, Soft and benign, Non-distended, No tenderness Musculoskeletal: No tenderness Integumentary: No rashes Neurological: Normal gait, Normal speech, Normal strength at 5/5 x4 extr, Normal tone, Sensation intact, Cranial nerves 3-12 intact, Normal affect Lymphatics: No axilla or inguinal lymphadenopathy Assessment & Plan - Problems (Diagnosis) (1) Pulmonary embolus Status: Acute (2) MTHFR gene mutation Status: Acute - Plan Plan: -anti coagulation; discussed with Pulmonary if patient needs lifelong anticoagulation -Doppler of lower extremity -hypercoagulable workup -echocardiogram -monitor oxygenation closely; O2 per protocol -GI prophylaxis Discharge Plan: Home Plan to discharge in: Greater than 2 days - Advance Directives Does patient have a Living Will: No Does patient have a Durable POA for Healthcare: No - Code Status/Comfort Care Code Status Assessed: Yes Code Status: Full Code Critical Care: No Time Spent Managing PTS Care (In Minutes): 45
--- NOTE | 2018-09-25 07:46 | EKG ---
Test Date: 2018-09-24 Test Time: 01:57:46 [employer]inist: MANJEET MEASUREMENT RESULTS: Intervals: Rate: 111 TX: 156 QRSD: 74 QT: 334 QTc: 454 [place]: P: 37 TX: 156 QRS: -2 T: 12 INTERPRETIVE STATEMENTS: Sinus tachycardia Otherwise normal ECG No previous ECG available for comparison Electronically Signed On 09-25-18 07:44:45 CDT by Mark Yates
== END 2018-09-24 13:33 | disposition home or self-care (01) ==
LOC: ER 01:17 → ERHOLD 04:55 → 4TH 05:30
PROVIDERS: ADMIT Hospitalist; ATTEND Family Medicine
DX: R07.9 Chest pain, unspecified (principal); E72.12 Methylenetetrahydrofolate reductase deficiency; Z87.891 Personal history of nicotine dependence; F32.9 Major depressive disorder, single episode, unspecified; F41.9 Anxiety disorder, unspecified; Z79.899 Other long term (current) drug therapy; Z86.718 Personal history of other venous thrombosis and embolism; Z86.711 Personal history of pulmonary embolism
CPT/HCPCS: 36415; 71045; 71275; 80048; 81001; 83735; 83880; 85025; 85379; 85610; 87086; 87088; 93005; 96372; 96374; 96375; 99285; G0378; J1650; J2270; J2405; J3010; J7030; Q9967

== ENCOUNTER 2018-10-12 11:01 | Emergency (ER) | payer SELFPAY ==
[2018-10-12] MEDS ORDERED: ONDANSETRON 4 MG/2 ML VIAL ONE ×2 (11:14→11:59)
[2018-10-12] MEDS ORDERED: NA CHLORIDE 0.9% 1,000 ML ONE (11:14)
[2018-10-12] MEDS ORDERED: MORPHINE 4 MG/ML SYR ONE (11:14)
[2018-10-12 11:46] LABS: Potassium 4.2 mmol/L (3.5-5.1)
--- NOTE | 2018-10-12 11:46 | RAD REPORT ---
EXAM DESCRIPTION: CT - Stone Protocol - 10/12/2018 11:33 am CLINICAL HISTORY: Flank pain. FLANK PAIN COMPARISON: Abdomen Pelvis W Contrast dated 09/16/2018 TECHNIQUE: Axial images were obtained without oral or IV contrast. Lack of contrast limits solid org an and vascular assessment. The [id number] spans the entirety of the system partially obscuring uppermost abdomen and lung bases. Coronal reformatted images were obtained and reviewed. All CT scans are performed using dose optimization technique as appropriate and may include automated exposure control or mA/KV adjustment according to patient size. FINDINGS: The lower lung rivera are clear. Imaged portions of the liver and spleen show no suspicious findings on non-contrast imaging.Cholecyst ectomy clips. The pancreas and adrenal glands are normal. No pathologic lymphadenopathy in the abdome n or pelvis. 2 mm stone is present at the right UVJ resulting in mild right hydronephrosis and hydroureter. No bowel obstruction, free air, free fluid or abscess. Normal appendix noted. No significant bony abnormality. IMPRESSION: 2 mm stone is present at the right UVJ resulting in mild right hydronephrosis and hydrou reter.
[2018-10-12] MEDS ORDERED: TAMSULOSIN 0.4 MG SR CAP ONE ×2 (11:50→12:59)
[2018-10-12] MEDS ORDERED: Magnesium Sulfate 2gm IVPB 2 G/50 ML BAG IV ONE (11:51)
[2018-10-12] MEDS ORDERED: CEFTRIAXONE/SWI 1gm 1 GM/10 ML SYR ONE (11:51)
[2018-10-12] MEDS ORDERED: KETOROLAC 30 MG/ML INJ ONE (11:51)
[2018-10-12 12:17] LABS: Urine Bacteria 20-50 /HPF (<20); Urine Culture Reflex Order REFLEXED; Urine RBC <5 /HPF (NONE SEEN)
[2018-10-12 12:39] LABS: Urine Blood 3+ (NEG); Urine Glucose TRACE (NEG); Urine Protein 2+ (NEG); Urine Specific Gravity 1.025 (1.005-1.030)
--- NOTE | 2018-10-12 13:12 | ER ---
Nurse's Notes [facility] Name: Melissa August Age: 33 yrs Sex: Female : 1985 Arrival Date: 10/12/2018 Time: 11:02 Bed 23 Private MD: Blas Patino Diagnosis: Calculus of kidney and ureter Presentation: 10/12 11:05 Presenting complaint: Patient states: I think I am passing a kidney stone, pain on la1 right side since 0800. Transition of care: patient was not received from another setting of care. Onset of symptoms was October 12, 2018. Risk Assessment: Do you want to hurt yourself or someone else? Patient reports no desire to harm self or others. Initial Sepsis Screen: Does the patient meet any 2 criteria? No. Patient's initial sepsis screen is negative. Does the patient have a suspected source of infection? No. Patient's initial sepsis screen is negative. Care prior to arrival: None. 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 - Social history:: Smoking status: Patient/guardian denies using tobacco. - Ebola Screening: : No symptoms or risks identified at this time. Screenin:21 Abuse screen: Denies threats or abuse. Denies injuries from another. Nutritional hb screening: No deficits noted. Tuberculosis screening: No symptoms or risk factors identified. Fall Risk None identified. Assessment: 11:19 General: Appears in no apparent distress. uncomfortable, Behavior is cooperative. Pain: hb Pain currently is 8 out of 10 on a pain scale. Neuro: Level of Consciousness is awake, alert, obeys commands, Oriented to person, place, time, situation. Cardiovascular: Capillary refill < 3 seconds Patient's skin is warm and dry. Respiratory: Airway is patent Respiratory effort is even, unlabored, Respiratory pattern is regular, symmetrical. GI: Abdomen is non-distended, Reports nausea, vomiting. : Reports right flank pain. EENT: No signs and/or symptoms were reported regarding the EENT system. Derm: Skin is pink, warm \\T\\ dry. Musculoskeletal: No signs and/or symptoms reported regarding the musculoskeletal system. 11:42 Reassessment:. hb 12:02 Reassessment: Patient appears in no apparent distress at this time. Patient and/or ca1 family updated on plan of care and expected duration. Pain level reassessed. Patient is alert, oriented x 3, equal unlabored respirations, skin warm/dry/pink. Pt is vomiting. Notified provider. Orders given. 12:55 Reassessment: Patient appears in no apparent distress at this time. Patient and/or ca1 family updated on plan of care and expected duration. Pain level reassessed. Patient is alert, oriented x 3, equal unlabored respirations, skin warm/dry/pink. Pt reported to have vomited the Flomax given. Pill seen by pt on emesis bag. Notified provider, and VO to give Flomax gain. 13:30 Reassessment: Patient appears in no apparent distress at this time. Patient is alert, ca1 oriented x 3, equal unlabored respirations, skin warm/dry/pink. Patient states feeling better. Vital Signs: 11:07 BP 145 / 89; Pulse 84; Resp 16; Temp 97.8; Pulse Ox 98% on R/A; Weight 95.25 kg; Height la1 5 ft. 7 in. (170.18 cm); 12:02 BP 106 / 86; Pulse 91; Resp 16 S; Pulse Ox 94% on R/A; ca1 12:55 BP 120 / 90; Pulse 86; Resp 17 S; Pulse Ox 95% on R/A; ca1 13:30 BP 121 / 75; Pulse 91; Resp 17 S; Pulse Ox 99% on R/A; ca1 11:07 Body Mass Index 32.89 (95.25 kg, 170.18 cm) la1 ED Course: 11:02 Patient arrived in ED. dl4 11:03 Blas Patino MD is Private Physician. dl4 11:05 [facility]C [facility]. kb 11:05 Jh Hogan MD is Attending Physician. kb 11:06 Triage completed. la1 11:08 Arm band placed on left wrist. la1 11:18 Inserted saline lock: 20 gauge in right antecubital area, using aseptic technique. sv Blood collected. Flushed right antecubital with 5 ml normal saline. 11:19 Patient has correct armband on for positive identification. Bed in low position. Call hb light in reach. Side rails up X 1. 11:33 CT Stone Protocol In Process Unspecified. EDMS 11:54 Jazlyn Smith, RN is Primary Nurse. ca1 13:31 No provider procedures requiring assistance completed. IV discontinued, intact, ca1 bleeding controlled, No redness/swelling at site. Pressure dressing applied. Administered Medications: 11:20 Drug: Zofran 4 mg Route: IVP; Site: right antecubital; sv 12:05 Follow up: Response: No adverse reaction; Nausea unchanged ca1 11:20 Drug: NS 0.9% 1000 ml Route: IV; Rate: 1000 ml; Site: right antecubital; sv 12:58 Follow up: Urine output 130 ml; Response: No adverse reaction; IV Status: Completed ca1 infusion; IV Intake: 1000ml 11:22 Drug: morphine 4 mg {Note: RASS 1.} Route: IVP; Site: right antecubital; sv 11:57 Follow up: Response: No adverse reaction; Pain is unchanged, physician notified hb 11:56 Drug: Magnesium Sulfate 2 grams Route: IVPB; Infused Over: 2 hrs; Site: right hb antecubital; 12:58 Follow up: Response: No adverse reaction; IV Status: Completed infusion ca1 11:56 Drug: Flomax 0.4 mg Route: PO; hb 12:57 Follow up: Response: Pt vomited medication, as reported by pt ca1 11:57 Drug: Rocephin 1 grams Route: IV; Rate: calculated rate; Site: right antecubital; hb 12:57 Follow up: Response: No adverse reaction; IV Status: Completed infusion ca1 11:57 Drug: TORadol - Ketorolac 15 mg Route: IVP; Site: right antecubital; hb 12:57 Follow up: Response: No adverse reaction; Pain is decreased ca1 12:04 Drug: Zofran 4 mg Route: IVP; Site: right antecubital; ca1 12:57 Follow up: Response: No adverse reaction; Nausea is decreased; Vomiting decreased ca1 13:00 Drug: Flomax 0.4 mg Route: PO; ca1 13:18 Follow up: Response: No adverse reaction ca1 Intake: 12:58 IV: 1000ml; Total: 1000ml. ca1 Output: 12:58 Urine: 130ml; Total: 130ml. ca1 Outcome: 13:11 Discharge ordered by MD. funes 13:31 Discharged to home ambulatory, with family. ca1 13:31 Condition: stable 13:31 Discharge instructions given to patient, Instructed on discharge instructions, follow up and referral plans. medication usage, Demonstrated understanding of instructions, follow-up care, medications, Prescriptions given X 5 13:32 Patient left the ED. ca1 Signatures: Dispatcher [employer] EDAZ Ethel Owens, NECKTIE TURNER-C NECKTIE TURNER-Cynthia Yancey, RN RN Scott Coker RN RN la1 Krystyna Cooper RN RN Freddy Crockett dl4 Jazlyn Smith RN RN ca1
--- NOTE | 2018-10-12 13:12 | EDPHYS ---
Physician Documentation [facility] Name: Melissa August Age: 33 yrs Sex: Female : 1985 Arrival Date: 10/12/2018 Time: 11:02 Bed 23 Private MD: Blas Patino ED Physician Jh Hogna HPI: 10/12 13:31 This 33 yrs old Female presents to ER via Ambulatory with complaints of kb Nausea/Vomiting, Low Back Pain. 13:31 The patient complains of pain in the right flank. The pain does not radiate. Onset: The kb symptoms/episode began/occurred this morning. Modifying factors: The symptoms are alleviated by nothing. the symptoms are aggravated by palpation/percussion. Associated signs and symptoms: Pertinent positives: nausea. Severity of pain: At its worst the pain was moderate in the emergency department the pain is unchanged. The patient has experienced similar episodes in the past. The patient has not recently seen a physician. 13:32 Pt states "I think I'm passing a kidney stone". 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 - Social history:: Smoking status: Patient/guardian denies using tobacco. - Ebola Screening: : No symptoms or risks identified at this time. ROS: 13:30 Constitutional: Negative for fever, chills, and weight loss, Cardiovascular: Negative kb for chest pain, palpitations, and edema, Respiratory: Negative for shortness of breath, cough, wheezing, and pleuritic chest pain, Abdomen/GI: Negative for abdominal pain, nausea, vomiting, diarrhea, and constipation, MS/Extremity: Negative for injury and deformity, Skin: Negative for injury, rash, and discoloration, Neuro: Negative for headache, weakness, numbness, tingling, and seizure. 13:30 : Positive for urinary symptoms, flank pain, difficulty urinating. Exam: 13:31 Constitutional: This is a well developed, well nourished patient who is awake, alert, kb and in no acute distress. Head/Face: Normocephalic, atraumatic. ENT: Nares patent. No nasal discharge, no septal abnormalities noted. Tympanic membranes are normal and external auditory canals are clear. Oropharynx with no redness, swelling, or masses, exudates, or evidence of obstruction, uvula midline. Mucous membranes moist. Neck: Trachea midline, no thyromegaly or masses palpated, and no cervical lymphadenopathy. Supple, full range of motion without nuchal rigidity, or vertebral point tenderness. No Meningismus. Chest/axilla: Normal chest wall appearance and motion. Nontender with no deformity. No lesions are appreciated. Cardiovascular: Regular rate and rhythm with a normal S1 and S2. No gallops, murmurs, or rubs. Normal PMI, no JVD. No pulse deficits. Respiratory: Lungs have equal breath sounds bilaterally, clear to auscultation and percussion. No rales, rhonchi or wheezes noted. No increased work of breathing, no retractions or nasal flaring. Abdomen/GI: Soft, non-tender, with normal bowel sounds. No distension or tympany. No guarding or rebound. No evidence of tenderness throughout. Skin: Warm, dry with normal turgor. Normal color with no rashes, no lesions, and no evidence of cellulitis. MS/ Extremity: Pulses equal, no cyanosis. Neurovascular intact. Full, normal range of motion. Neuro: Awake and alert, GCS 15, oriented to person, place, time, and situation. Cranial nerves II-XII grossly intact. Motor strength 5/5 in all extremities. Sensory grossly intact. Cerebellar exam normal. Normal gait. 13:31 Back: pain, that is moderate, CVA tenderness, that is moderate, is noted on the right. Vital Signs: 11:07 BP 145 / 89; Pulse 84; Resp 16; Temp 97.8; Pulse Ox 98% on R/A; Weight 95.25 kg; Height la1 5 ft. 7 in. (170.18 cm); 12:02 BP 106 / 86; Pulse 91; Resp 16 S; Pulse Ox 94% on R/A; ca1 12:55 BP 120 / 90; Pulse 86; Resp 17 S; Pulse Ox 95% on R/A; ca1 13:30 BP 121 / 75; Pulse 91; Resp 17 S; Pulse Ox 99% on R/A; ca1 11:07 Body Mass Index 32.89 (95.25 kg, 170.18 cm) la1 MDM: 11:05 Patient medically screened. kb 13:30 Data reviewed: vital signs, nurses notes. Data interpreted: Pulse oximetry: on room air kb is 95 %. Interpretation: normal. Counseling: I had a detailed discussion with the patient and/or guardian regarding: the historical points, exam findings, and any diagnostic results supporting the discharge/admit diagnosis, lab results, radiology results, the need for outpatient follow up, a urologist, to return to the emergency department if symptoms worsen or persist or if there are any questions or concerns that arise at home. 10/12 11:09 Order name: Urine Microscopic Only; Complete Time: 12:24 kb 10/12 11:09 Order name: Basic Metabolic Panel; Complete Time: 11:47 kb 10/12 11:09 Order name: CT Stone Protocol; Complete Time: 11:47 kb 10/12 11:24 Order name: Urine Dipstick--Ancillary (enter results); Complete Time: 12:40 ar5 10/12 11:24 Order name: Urine --Ancillary (enter results); Complete Time: 12:40 ar5 10/12 12:20 Order name: Urine Culture EDMS 10/12 11:09 Order name: Urine Test (obtain specimen); Complete Time: 11:21 kb 10/12 11:09 Order name: Urine Dipstick-Ancillary (obtain specimen); Complete Time: 11:21 kb 10/12 11:09 Order name: IV Start; Complete Time: 11:23 kb Administered Medications: 11:20 Drug: Zofran 4 mg Route: IVP; Site: right antecubital; sv 12:05 Follow up: Response: No adverse reaction; Nausea unchanged ca1 11:20 Drug: NS 0.9% 1000 ml Route: IV; Rate: 1000 ml; Site: right antecubital; sv 12:58 Follow up: Urine output 130 ml; Response: No adverse reaction; IV Status: Completed ca1 infusion; IV Intake: 1000ml 11:22 Drug: morphine 4 mg {Note: RASS 1.} Route: IVP; Site: right antecubital; sv 11:57 Follow up: Response: No adverse reaction; Pain is unchanged, physician notified hb 11:56 Drug: Magnesium Sulfate 2 grams Route: IVPB; Infused Over: 2 hrs; Site: right hb antecubital; 12:58 Follow up: Response: No adverse reaction; IV Status: Completed infusion ca1 11:56 Drug: Flomax 0.4 mg Route: PO; hb 12:57 Follow up: Response: Pt vomited medication, as reported by pt ca1 11:57 Drug: Rocephin 1 grams Route: IV; Rate: calculated rate; Site: right antecubital; hb 12:57 Follow up: Response: No adverse reaction; IV Status: Completed infusion ca1 11:57 Drug: TORadol - Ketorolac 15 mg Route: IVP; Site: right antecubital; hb 12:57 Follow up: Response: No adverse reaction; Pain is decreased ca1 12:04 Drug: Zofran 4 mg Route: IVP; Site: right antecubital; ca1 12:57 Follow up: Response: No adverse reaction; Nausea is decreased; Vomiting decreased ca1 13:00 Drug: Flomax 0.4 mg Route: PO; ca1 13:18 Follow up: Response: No adverse reaction ca1 Disposition: 15:30 Co-signature as Attending Physician, Jh Hogan MD I agree with the assessment and jennifer plan of care. Disposition: 10/12/18 13:11 Discharged to Home. Impression: Calculus of kidney and ureter. - Condition is Stable. - Discharge Instructions: Kidney Stones, [id number], Dietary Guidelines to Help Prevent Kidney Stones. - Prescriptions for Tylenol- Codeine #3 300-30 mg Oral Tablet - take 1 tablet by ORAL route every 6 hours As needed; 15 tablet. Zofran 4 mg Oral Tablet - take 1 tablet by ORAL route every 6 hours As needed; 20 tablet. Flomax 0.4 mg Oral Capsule, Sust. Release 24 hr - take 1 capsule by ORAL route once daily 1/2 hour following the same meal each day; 10 capsule. Diclofenac Sodium 75 mg Oral Tablet, Delayed Release (E.C.) - take 1 tablet by ORAL route 2 times per day As needed; 30 tablet. Macrobid 100 mg Oral Capsule - take 1 capsule by ORAL route every 12 hours for 7 days; 14 capsule. - Medication Reconciliation Form, Thank You Letter, Antibiotic Education, Prescription Opioid Use, Work release form form. - Follow up: Emergency Department; When: As needed; Reason: Worsening of condition. Follow up: Private Physician; When: 2 - 3 days; Reason: Recheck today's complaints, Continuance of care, Re-evaluation by your physician. Signatures: Dispatcher [employer] Ethel Munguia, OBED LEO-Cynthia Yancey, RN RN Jh Fragoso MD MD cha Attema, Lee, RN RN la1 Krystyna Cooper RN RN Acob, Jazlyn RN RN ca1 Corrections: (The following items were deleted from the chart) 13:32 13:11 10/12/2018 13:11 Discharged to Home. Impression: Calculus of kidney and ureter. ca1 Condition is Stable. Forms are Medication Reconciliation Form, Thank You Letter, Antibiotic Education, Prescription Opioid Use. Follow up: Emergency Department; When: As needed; Reason: Worsening of condition. Follow up: Private Physician; When: 2 - 3 days; Reason: Recheck today's complaints, Continuance of care, Re-evaluation by your physician. kb
[2018-10-12 14:12] VITALS: BP 121/75; O2SAT 99
== END 2018-10-12 13:32 | disposition home or self-care (01) ==
LOC: ER 11:01
DX: N20.2 Calculus of kidney with calculus of ureter (principal)
CPT/HCPCS: 36415; 74176; 76377; 80048; 81003; 81015; 81025; 87086; 87088; 96361; 96365; 96375; 99284; J0696; J2405; J3475; J7030

== ENCOUNTER 2018-12-08 06:21 | Emergency (ER) | payer SELFPAY ==
[2018-12-08] MEDS ORDERED: MORPHINE 4 MG/ML SYR ONE (06:58)
[2018-12-08] MEDS ORDERED: ONDANSETRON 4 MG/2 ML VIAL ONE (06:59)
[2018-12-08 07:03] LABS: Absolute Lymphocytes (CBC) 1.6 K/uL (0.7-4.9); Basophils % 0.8 % (0-1.3); Hematocrit 33.7 % (36.0-45.0); Lymphocytes % 20.2 % (15.3-44.8); MPV 8.5 fL (7.6-11.3); RBC Red Blood Cell Count 3.83 M/uL (3.86-4.86)
[2018-12-08 07:19] LABS: Albumin 3.7 g/dL (3.4-5.0); Bilirubin Direct 0.2 mg/dL (0-0.2); Bilirubin Total 0.4 mg/dL (0.2-1.0)
[2018-12-08 08:00] LABS: Urine Blood 1+ (NEG); Urine Glucose NEGATIVE (NEG); Urine Protein TRACE (NEG); Urine Specific Gravity 1.025 (1.005-1.030); Urine pH 6.5 (5.0-7.0)
--- NOTE | 2018-12-08 08:23 | RAD REPORT ---
EXAM DESCRIPTION: CT - Stone Protocol - 12/08/2018 7:54 am CLINICAL HISTORY: Abdominal pain. Right flank pain COMPARISON: September 2018 TECHNIQUE: Computed axial tomography of the abdomen pelvis was obtained without oral or IV contrast. Lack of IV and oral contrast limits evaluation of solid organs, bowel, and vessels. Coronal reformat laura images were obtained and reviewed. All CT scans are performed using dose optimization technique as appropriate and may include automated exposure control or mA/KV adjustment according to patient size. FINDINGS: A renal calculus is not seen. An ureteral calculus is not noted. A bladder calculus is not present. The left lobe of the liver is prominent. The spleen measures 16 centimeters. The pancreas and adrenals are unremarkable. Cholecystectomy There is no evidence of diverticulitis. The appendix appears normal A 3 millimeter nodule right middle lobe is unchanged IMPRESSION: Negative for a genitourinary calculus Splenomegaly Hepatomegaly 3 millimeter right middle lobe nodule. Per Fleischner guidelines if the patient is low risk no follow -up. If the patient is high risk CT chest September 2019 recommended
[2018-12-08] MEDS ORDERED: LIDOCAINE VISCOUS 2% SOLN 15 ML UDC ONE (08:36)
[2018-12-08] MEDS ORDERED: MAGNES/ALUMIN/SIMET 30ML UCUP ONE (08:36)
--- NOTE | 2018-12-08 08:36 | EDPHYS ---
Physician Documentation [facility] Name: Melissa August Age: 33 yrs Sex: Female : 1985 Arrival Date: 12/08/2018 Time: 06:28 Bed 15 Private MD: Blas Patino ED Physician Jesús Moon HPI: 12/08 06:52 This 33 yrs old Female presents to ER via Ambulatory with complaints of jr8 Abdominal Pain, Back Pain. 06:52 The patient presents with abdominal pain in the epigastric area. Onset: The jr8 symptoms/episode began/occurred 3 day(s) ago. The symptoms radiate to the right flank. Associated signs and symptoms: Pertinent negatives: nausea, vomiting, and diarrhea, fever. The symptoms are described as achy. Severity of pain: At its worst the pain was moderate in the emergency department the pain is unchanged. The patient has experienced a previous episode. Pt reports three days of upper abd pain without N/V/D or fevers. 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 - Social history:: Smoking status: Patient/guardian denies using tobacco, Patient/guardian denies using alcohol, street drugs. - Ebola Screening: : No symptoms or risks identified at this time. ROS: 06:54 Constitutional: Negative for fever, chills, and weight loss, Eyes: Negative for injury, jr8 pain, redness, and discharge, ENT: Negative for injury, pain, and discharge, Neck: Negative for injury, pain, and swelling, Cardiovascular: Negative for chest pain, palpitations, and edema, Respiratory: Negative for shortness of breath, cough, wheezing, and pleuritic chest pain, Back: Negative for injury and pain, MS/Extremity: Negative for injury and deformity, Neuro: Negative for headache, weakness, numbness, tingling, and seizure. 06:54 Abdomen/GI: Positive for abdominal pain, Negative for nausea, vomiting, and diarrhea. Exam: 06:54 Constitutional: This is a well developed, well nourished patient who is awake, alert, jr8 and in no acute distress. Head/Face: Normocephalic, atraumatic. Eyes: Pupils equal round and reactive to light, extra-ocular motions intact. Lids and lashes normal. Conjunctiva and sclera are non-icteric and not injected. Cornea within normal limits. Periorbital areas with no swelling, redness, or edema. ENT: Nares patent. No nasal discharge, no septal abnormalities noted. Tympanic membranes are normal and external auditory canals are clear. Oropharynx with no redness, swelling, or masses, exudates, or evidence of obstruction, uvula midline. Mucous membranes moist. Neck: Trachea midline, no thyromegaly or masses palpated, and no cervical lymphadenopathy. Supple, full range of motion without nuchal rigidity, or vertebral point tenderness. No Meningismus. Chest/axilla: Normal chest wall appearance and motion. Nontender with no deformity. No lesions are appreciated. Cardiovascular: Regular rate and rhythm with a normal S1 and S2. No gallops, murmurs, or rubs. Normal PMI, no JVD. No pulse deficits. Respiratory: Lungs have equal breath sounds bilaterally, clear to auscultation and percussion. No rales, rhonchi or wheezes noted. No increased work of breathing, no retractions or nasal flaring. Back: No spinal tenderness. No costovertebral tenderness. Full range of motion. 06:54 Abdomen/GI: Inspection: abdomen appears normal, Bowel sounds: normal, in all quadrants, Palpation: soft, in all quadrants, mild abdominal tenderness, in the epigastric area and left upper quadrant, Indicators: McBurney's point is not tender, Oconnor's sign is negative, Rovsing's sign is negative, Obturator sign is negative, Psoas sign is negative. Vital Signs: 06:39 BP 132 / 90; Pulse 93; Resp 16 S; Temp 98.6(O); Pulse Ox 99% on R/A; Weight 104.33 kg bb (R); Height 5 ft. 4 in. (162.56 cm) (R); Pain 8/10; 07:31 BP 125 / 80; Pulse 85; Resp 16; Pulse Ox 98% ; Pain 4/10; em 08:30 BP 134 / 82; Pulse 78; Resp 18; Pulse Ox 98% on R/A; Pain 4/10; em 06:39 Body Mass Index 39.48 (104.33 kg, 162.56 cm) bb MDM: 06:29 Patient medically screened. jr8 08:31 Differential diagnosis: diverticulitis, gastritis, gastroesophageal reflux disease, jr8 Hepatitis, pancreatitis, Peptic Ulcer Disease. Data reviewed: vital signs, nurses notes, lab test result(s), radiologic studies, CT scan. Data interpreted: Pulse oximetry: on room air is 98 %. Interpretation: normal. ED course: Pt with mild epigastric pain, abd soft with mild tenderness in the epigastric region. No fevers, Denies N/V/D. Discussed CT and lab results, return precautions given. 12/08 06:42 Order name: Basic Metabolic Panel; Complete Time: 07:32 12/08 06:42 Order name: CBC with Diff; Complete Time: 07:32 12/08 06:42 Order name: Creatinine for Radiology; Complete Time: 08:36 12/08 06:42 Order name: Hepatic Function; Complete Time: 07:32 12/08 06:42 Order name: Lipase; Complete Time: 07:32 12/08 07:37 Order name: Urine Dipstick--Ancillary (enter results); Complete Time: 08:17 12/08 06:42 Order name: IV Saline Lock; Complete Time: 07:06 12/08 06:42 Order name: Labs collected and sent; Complete Time: 07:06 12/08 07:03 Order name: Urine Dipstick-Ancillary (obtain specimen); Complete Time: 07:06 12/08 07:33 Order name: CT Stone Protocol; Complete Time: 08:28 12/08 07:37 Order name: Urine --Ancillary (enter results); Complete Time: 08:17 12/08 07:03 Order name: Urine Test (obtain specimen); Complete Time: 07:06 Administered Medications: 07:05 Drug: Zofran 4 mg Route: IVP; Site: right antecubital; ss 07:23 Follow up: Response: No adverse reaction; Nausea is decreased em 07:07 Drug: morphine 4 mg Route: IVP; Site: right antecubital; 07:23 Follow up: Response: No adverse reaction; Pain is decreased; RASS: Alert and Calm (0) em 08:47 Drug: GI Cocktail without - (Maalox Suspension 30 ml, Lidocaine Liquid 2 % 15 em ml) Route: PO; 09:02 Follow up: Response: No adverse reaction em Disposition: 11:28 Co-signature as Attending Physician, Jesús Moon MD I agree with the assessment and kdr plan of care. Disposition: 12/08/18 08:35 Discharged to Home. Impression: Upper abdominal pain, unspecified. - Condition is Stable. - Discharge Instructions: Abdominal Pain, Adult, Gastritis, Adult. - Prescriptions for Bentyl 20 mg Oral Tablet - take 1 tablet by ORAL route every 6 hours As needed; 20 tablet. - Medication Reconciliation Form, Thank You Letter form. - Follow up: Private Physician; When: 2 - 3 days; Reason: Recheck today's complaints, Re-evaluation by your physician. - Problem is new. - Symptoms have improved. Signatures: Dispatcher [employer] EDOK Jesús Moon MD MD [facility] Jose Eduardo Ling, PROPERTY MAN PROPERTY MAN em Lissett Blair RN RN bb Cheryle Orosco RN RN ss Austin Kramer PA PA jr8 Corrections: (The following items were deleted from the chart) 09:02 08:35 12/08/2018 08:35 Discharged to Home. Impression: Upper abdominal pain, em unspecified. Condition is Stable. Forms are Medication Reconciliation Form, Thank You Letter, Antibiotic Education, Prescription Opioid Use. Follow up: Private Physician; When: 2 - 3 days; Reason: Recheck today's complaints, Re-evaluation by your physician. Problem is new. Symptoms have improved. jr8
--- NOTE | 2018-12-08 08:36 | ER ---
Nurse's Notes [facility] Name: Melissa August Age: 33 yrs Sex: Female : 1985 Arrival Date: 12/08/2018 Time: 06:28 Bed 15 Private MD: Blas Patino Diagnosis: Upper abdominal pain, unspecified Presentation: 12/08 06:37 Presenting complaint: Patient states: she is having upper abdominal pain which is bb radiating around to the right side of her back x 3 days the pain is worsening and she is nauseous pt denies vomiting or diarrhea. Transition of care: patient was not received from another setting of care. Onset of symptoms was December 05, 2018. Risk Assessment: Do you want to hurt yourself or someone else? Patient reports no desire to harm self or others. Initial Sepsis Screen: Does the patient meet any 2 criteria? No. Patient's initial sepsis screen is negative. Does the patient have a suspected source of infection? No. Patient's initial sepsis screen is negative. Care prior to arrival: None. 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 - Social history:: Smoking status: Patient/guardian denies using tobacco, Patient/guardian denies using alcohol, street drugs. - Ebola Screening: : No symptoms or risks identified at this time. Screenin:07 Abuse screen: Denies threats or abuse. Nutritional screening: No deficits noted. em Tuberculosis screening: No symptoms or risk factors identified. Fall Risk None identified. Assessment: 06:43 General: Appears uncomfortable, Behavior is calm, cooperative, appropriate for age, fu Denies fever, feeling ill, fatigue, chills. Pain: Complains of pain in epigastric pain Pain radiates to right side of the back Pain currently is 7 out of 10 on a pain scale. Quality of pain is described as sharp. Neuro: No deficits noted. Cardiovascular: Denies chest pain, Heart tones S2 Capillary refill < 3 seconds. Respiratory: Airway is patent Breath sounds are clear bilaterally. Denies cough, shortness of breath. GI: Bowel sounds present X 4 quads. Abd is soft. : Denies burning with urination. EENT: No deficits noted. Derm: No signs and/or symptoms reported regarding the dermatologic system. Musculoskeletal: No signs and/or symptoms reported regarding the musculoskeletal system. 07:30 Reassessment: Patient appears in no apparent distress at this time. Patient and/or em family updated on plan of care and expected duration. Pain level reassessed. Patient is alert, oriented x 3, equal unlabored respirations, skin warm/dry/pink. rates pain 4/10 Patient states feeling better. Patient states symptoms have improved. 08:48 Reassessment: Patient appears in no apparent distress at this time. Patient and/or em family updated on plan of care and expected duration. Pain level reassessed. Patient is alert, oriented x 3, equal unlabored respirations, skin warm/dry/pink. Vital Signs: 06:39 BP 132 / 90; Pulse 93; Resp 16 S; Temp 98.6(O); Pulse Ox 99% on R/A; Weight 104.33 kg bb (R); Height 5 ft. 4 in. (162.56 cm) (R); Pain 8/10; 07:31 BP 125 / 80; Pulse 85; Resp 16; Pulse Ox 98% ; Pain 4/10; em 08:30 BP 134 / 82; Pulse 78; Resp 18; Pulse Ox 98% on R/A; Pain 4/10; em 06:39 Body Mass Index 39.48 (104.33 kg, 162.56 cm) ED Course: 06:28 Patient arrived in ED. es 06:29 Blas Patino MD is Private Physician. es 06:29 Austin Kramer [facility] jr8 06:29 Jesús Moon MD is Attending Physician. jr8 06:38 Triage completed. bb 06:39 Arm band placed on Patient placed in an exam room, on a stretcher, on pulse oximetry. bb 06:42 Abelardo Martin, ESTRELLA is Primary Nurse. fu 06:59 Initial lab(s) drawn, by me, sent to lab. Inserted saline lock: 20 gauge in left fu antecubital area, using aseptic technique. 07:07 Patient has correct armband on for positive identification. Placed in gown. Bed in low em position. Call light in reach. Pulse ox on. NIBP on. 07:53 CT Stone Protocol In Process Unspecified. EDMS 08:49 No provider procedures requiring assistance completed. IV discontinued, intact, em bleeding controlled, No redness/swelling at site. Pressure dressing applied. Administered Medications: 07:05 Drug: Zofran 4 mg Route: IVP; Site: right antecubital; 07:23 Follow up: Response: No adverse reaction; Nausea is decreased em 07:07 Drug: morphine 4 mg Route: IVP; Site: right antecubital; 07:23 Follow up: Response: No adverse reaction; Pain is decreased; RASS: Alert and Calm (0) em 08:47 Drug: GI Cocktail without - (Maalox Suspension 30 ml, Lidocaine Liquid 2 % 15 em ml) Route: PO; 09:02 Follow up: Response: No adverse reaction em Outcome: 08:35 Discharge ordered by MD. bowles 09:01 Discharged to home ambulatory. em 09:01 Condition: good 09:01 Discharge instructions given to patient, Instructed on discharge instructions, follow up and referral plans. medication usage, Demonstrated understanding of instructions, follow-up care, medications, Prescriptions given X 1. 09:02 Patient left the ED. em Signatures: Dispatcher [employer] Brittany Preston Edgar, FISH HATCHERY MAN FISH HATCHERY MAN Lissett Blair RN ESTRELLA Cheryle Orosco RN RN ss Roszak, Josh, PA PA jr8 Umadhay, Felix, RN RN fu
[2018-12-08 09:09] VITALS: TEMP 98.6
[2018-12-08 09:11] VITALS: O2SAT 98
[2018-12-08 09:12] VITALS: BP 134/82
== END 2018-12-08 09:02 | disposition home or self-care (01) ==
LOC: ER 06:21
DX: R10.10 Upper abdominal pain, unspecified (principal)
CPT/HCPCS: 36415; 74176; 76377; 80048; 80076; 81003; 81025; 83690; 85025; 96374; 96375; 99284; J2405

== ENCOUNTER 2018-12-11 03:47 | Emergency (ER) | payer SELFPAY ==
[2018-12-11] MEDS ORDERED: PROMETHAZINE 25 MG/ML VIAL ONE (04:40)
[2018-12-11 04:41] LABS: Absolute Lymphocytes (CBC) 1.5 K/uL (0.7-4.9); Basophils % 0.6 % (0-1.3); Hematocrit 35.9 % (36.0-45.0); Lymphocytes % 19.7 % (15.3-44.8); MPV 8.8 fL (7.6-11.3); RBC Red Blood Cell Count 4.08 M/uL (3.86-4.86)
[2018-12-11] MEDS ORDERED: NA CHLORIDE 0.9% 1,000 ML ONE (04:41)
[2018-12-11] MEDS ORDERED: MORPHINE 4 MG/ML SYR ONE (04:41)
[2018-12-11] MEDS ORDERED: ONDANSETRON 4 MG/2 ML VIAL ONE (04:42)
[2018-12-11 04:44] LABS: Urine Blood NEGATIVE (NEG); Urine Glucose NEGATIVE (NEG); Urine Protein NEGATIVE (NEG); Urine Specific Gravity 1.025 (1.005-1.030); Urine pH 6.5 (5.0-7.0)
[2018-12-11] MEDS ORDERED: PANTOPRAZOLE 40 MG INJ ONE (04:46)
[2018-12-11 04:58] LABS: Albumin 3.9 g/dL (3.4-5.0); Bilirubin Direct 0.1 mg/dL (0-0.2); Bilirubin Total 0.4 mg/dL (0.2-1.0); Potassium 3.8 mmol/L (3.5-5.1); Protein, Total 8.6 g/dL (6.4-8.2)
--- NOTE | 2018-12-11 05:30 | ER ---
Nurse's Notes [facility] Name: Melissa August Age: 33 yrs Sex: Female : 1985 Arrival Date: 12/11/2018 Time: 03:49 Bed 19 Private MD: Diagnosis: Functional dyspepsia;Abdominal tenderness Presentation: 12/11 04:00 Presenting complaint: Patient states: epigastric pain that radiates to her back. pt ak1 seen Tuesday morning for s/s. pt stated she is now vomiting and pain has increased. pt has an appointment with her PCP this Tuesday. Transition of care: patient was not received from another setting of care. Onset of symptoms is unknown. Risk Assessment: Do you want to hurt yourself or someone else? Patient reports no desire to harm self or others. Initial Sepsis Screen: Does the patient meet any 2 criteria? No. Patient's initial sepsis screen is negative. Does the patient have a suspected source of infection? No. Patient's initial sepsis screen is negative. Care prior to arrival: None. 04:00 Method Of Arrival: Ambulatory ak1 04:00 Acuity: ARCELIA 3 ak1 Triage Assessment: 04:02 General: Appears in no apparent distress. uncomfortable, Behavior is calm, cooperative. ak1 Pain: Complains of pain in diaphragm and xyphoid area Pain radiates to thoracic area. EENT: No signs and/or symptoms were reported regarding the EENT system. Neuro: Level of Consciousness is awake, alert, obeys commands, Oriented to person, place, time, situation, Integrated Marketing Specialist are equal bilaterally Moves all extremities. Full function Speech is normal. Cardiovascular: No deficits noted. Respiratory: No deficits noted. GI: Reports upper abdominal pain, epigastric pain, nausea, vomiting. : No signs and/or symptoms were reported regarding the genitourinary system. Derm: No signs and/or symptoms reported regarding the dermatologic system. Musculoskeletal: No signs and/or symptoms reported regarding the musculoskeletal system. 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 - Social history:: Smoking status: Patient/guardian denies using tobacco. - Ebola Screening: : No symptoms or risks identified at this time. - Family history:: not pertinent. Screenin:06 Abuse screen: Denies threats or abuse. Denies injuries from another. Nutritional ak1 screening: No deficits noted. Tuberculosis screening: No symptoms or risk factors identified. Fall Risk None identified. Assessment: 04:06 Reassessment: Patient appears in no apparent distress at this time. No changes from ak1 previously documented assessment. see triage assessment. 04:55 Reassessment: Patient appears in no apparent distress at this time. Patient and/or ak1 family updated on plan of care and expected duration. Pain level reassessed. Patient is alert, oriented x 3, equal unlabored respirations, skin warm/dry/pink. Patient denies pain at this time. 06:01 Reassessment: Patient appears in no apparent distress at this time. Patient is alert, aa1 oriented x 3, equal unlabored respirations, skin warm/dry/pink. Discussed d/c \\T\\ f/u instructions with pt; denies questions or concerns at this time. Ambulatory to lobby with steady gait Patient states feeling better. Vital Signs: 04:00 BP 147 / 76; Pulse 94; Resp 18; Temp 97.6; Pulse Ox 98% on R/A; Weight 104.33 kg (R); ak1 Height 5 ft. 4 in. (162.56 cm) (R); Pain 9/10; 04:54 BP 126 / 81; Pulse 88; Resp 16; Pulse Ox 96% on R/A; ak1 06:01 BP 124 / 71; Pulse 85; Resp 16; Temp 97.8; Pulse Ox 99% on R/A; Pain 4/10; aa1 04:00 Body Mass Index 39.48 (104.33 kg, 162.56 cm) ak1 ED Course: 03:49 Patient arrived in ED. ds1 03:54 Natalie Norman, RN is Primary Nurse. ak1 04:00 Arm band placed on Patient placed in an exam room, on a stretcher, on pulse oximetry, ak1 Patient notified of wait time. 04:02 Triage completed. ak1 04:06 Patient has correct armband on for positive identification. Bed in low position. Call ak1 light in reach. Side rails up X 1. Pulse ox on. NIBP on. 04:14 Jh Hogan MD is Attending Physician. [facility] 04:28 Initial lab(s) drawn, by wv, sent to lab. Urine collected: clean catch specimen. ak1 Inserted saline lock: 22 gauge in right antecubital area, using aseptic technique. Blood collected. 05:27 Kristofer Mariano MD is Referral Physician. [facility] 06:01 No provider procedures requiring assistance completed. IV discontinued, intact, aa1 bleeding controlled, No redness/swelling at site. Pressure dressing applied. Administered Medications: 04:28 Drug: NS 0.9% 1000 ml Route: IV; Rate: 1 bolus; Site: right antecubital; ak1 05:28 Follow up: IV Status: Completed infusion; IV Intake: 1000ml aa1 04:44 Drug: Zofran 4 mg Route: IVP; Site: right antecubital; aa1 05:44 Follow up: Response: No adverse reaction; Nausea is decreased aa1 04:46 Drug: morphine 2 mg Route: IVP; Site: right antecubital; aa1 05:46 Follow up: Response: No adverse reaction; Pain is decreased aa1 04:47 Drug: ProTONIX 40 mg Route: IVP; Site: right antecubital; aa1 05:47 Follow up: Response: No adverse reaction; Pain is decreased aa1 Intake: 05:28 IV: 1000ml; Total: 1000ml. aa1 Outcome: 05:30 Discharge ordered by . [facility] 06:01 Discharged to home ambulatory. aa1 06:01 Condition: good 06:01 Discharge instructions given to patient, Instructed on discharge instructions, follow up and referral plans. medication usage, Demonstrated understanding of instructions, follow-up care, medications, Prescriptions given X 4. 06:06 Patient left the ED. aa1 Signatures: Zuleika Castelan RN RN aa1 Jh Hogan MD MD cha Sanford, Demi ds1 Natalie Norman RN RN ak1
--- NOTE | 2018-12-11 05:31 | EDPHYS ---
Physician Documentation [facility] Name: Melissa August Age: 33 yrs Sex: Female : 1985 Arrival Date: 12/11/2018 Time: 03:49 Bed 19 Private MD: ED Physician Jh Hogan HPI: 12/11 04:38 This 33 yrs old Female presents to ER via Ambulatory with complaints of Upper jennifer Abd Pain, Nausea/Vomiting. 04:38 The patient presents to the emergency department with nausea, vomiting, abdominal pain, jennifer of the epigastric area, right upper quadrant and left upper quadrant. Onset: The symptoms/episode began/occurred 2 day(s) ago. Possible causes: unknown. The symptoms are aggravated by nothing. The symptoms are alleviated by nothing. Associated signs and symptoms: The patient has no apparent associated signs or symptoms. Severity of symptoms: At their worst the symptoms were mild in the emergency department the symptoms are unchanged. The patient has experienced similar episodes in the past, a few times. 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 - Social history:: Smoking status: Patient/guardian denies using tobacco. - Ebola Screening: : No symptoms or risks identified at this time. - Family history:: not pertinent. ROS: 04:39 Constitutional: Negative for fever, chills, and weight loss, Eyes: Negative for injury, jennifer pain, redness, and discharge, ENT: Negative for injury, pain, and discharge, Neck: Negative for injury, pain, and swelling, Cardiovascular: Negative for chest pain, palpitations, and edema, Respiratory: Negative for shortness of breath, cough, wheezing, and pleuritic chest pain, Back: Negative for injury and pain, : Negative for injury, bleeding, discharge, and swelling, MS/Extremity: Negative for injury and deformity, Skin: Negative for injury, rash, and discoloration, Neuro: Negative for headache, weakness, numbness, tingling, and seizure, Psych: Negative for depression, anxiety, suicide ideation, homicidal ideation, and hallucinations, Allergy/Immunology: Negative for hives, rash, and allergies, Endocrine: Negative for neck swelling, polydipsia, polyuria, polyphagia, and marked weight changes, Hematologic/Lymphatic: Negative for swollen nodes, abnormal bleeding, and unusual bruising. 04:39 Abdomen/GI: Positive for abdominal pain, of the epigastric area, right upper quadrant and left upper quadrant. Exam: 04:39 Constitutional: This is a well developed, well nourished patient who is awake, alert, jennifer and in no acute distress. Head/Face: Normocephalic, atraumatic. Eyes: Pupils equal round and reactive to light, extra-ocular motions intact. Lids and lashes normal. Conjunctiva and sclera are non-icteric and not injected. Cornea within normal limits. Periorbital areas with no swelling, redness, or edema. ENT: Nares patent. No nasal discharge, no septal abnormalities noted. Tympanic membranes are normal and external auditory canals are clear. Oropharynx with no redness, swelling, or masses, exudates, or evidence of obstruction, uvula midline. Mucous membranes moist. Neck: Trachea midline, no thyromegaly or masses palpated, and no cervical lymphadenopathy. Supple, full range of motion without nuchal rigidity, or vertebral point tenderness. No Meningismus. Chest/axilla: Normal chest wall appearance and motion. Nontender with no deformity. No lesions are appreciated. Cardiovascular: Regular rate and rhythm with a normal S1 and S2. No gallops, murmurs, or rubs. Normal PMI, no JVD. No pulse deficits. Respiratory: Lungs have equal breath sounds bilaterally, clear to auscultation and percussion. No rales, rhonchi or wheezes noted. No increased work of breathing, no retractions or nasal flaring. Back: No spinal tenderness. No costovertebral tenderness. Full range of motion. Skin: Warm, dry with normal turgor. Normal color with no rashes, no lesions, and no evidence of cellulitis. MS/ Extremity: Pulses equal, no cyanosis. Neurovascular intact. Full, normal range of motion. Neuro: Awake and alert, GCS 15, oriented to person, place, time, and situation. Cranial nerves II-XII grossly intact. Motor strength 5/5 in all extremities. Sensory grossly intact. Cerebellar exam normal. Normal gait. Psych: Awake, alert, with orientation to person, place and time. Behavior, mood, and affect are within normal limits. 04:39 Abdomen/GI: Inspection: abdomen appears normal, Bowel sounds: normal, Palpation: mild abdominal tenderness, in the epigastric area, right upper quadrant and left upper quadrant, Liver: no appreciated palpable abnormalities, Hernia: not appreciated. 05:30 Musculoskeletal/extremity: DVT Exam: No signs of deep vein thrombosis. no pain, no jennifer swelling, no tenderness, negative Homans' sign noted on exam, no appreciated bluish discoloration, no erythema, no increased warmth. Vital Signs: 04:00 BP 147 / 76; Pulse 94; Resp 18; Temp 97.6; Pulse Ox 98% on R/A; Weight 104.33 kg (R); ak1 Height 5 ft. 4 in. (162.56 cm) (R); Pain 9/10; 04:54 BP 126 / 81; Pulse 88; Resp 16; Pulse Ox 96% on R/A; ak1 06:01 BP 124 / 71; Pulse 85; Resp 16; Temp 97.8; Pulse Ox 99% on R/A; Pain 4/10; aa1 04:00 Body Mass Index 39.48 (104.33 kg, 162.56 cm) ak MDM: 04:14 Patient medically screened. [facility] 04:39 Data reviewed: vital signs, nurses notes, lab test result(s), radiologic studies, CT jennifer scan. 12/11 04:15 Order name: Basic Metabolic Panel; Complete Time: 05:18 [facility] 12/11 04:15 Order name: CBC with Diff; Complete Time: 05:18 [facility] 12/11 04:15 Order name: Creatinine for Radiology; Complete Time: 05:18 [facility] 12/11 04:15 Order name: Hepatic Function; Complete Time: 05:18 [facility] 12/11 04:15 Order name: Lipase; Complete Time: 05:18 [facility] 12/11 04:34 Order name: D-Dimer; Complete Time: 05:18 ak 12/11 04:15 Order name: IV Saline Lock; Complete Time: 04:28 [facility] 12/11 04:15 Order name: Labs collected and sent; Complete Time: 04: [facility] 12/11 04:34 Order name: Urine Dipstick--Ancillary (enter results); Complete Time: 05:18 mw2 12/11 04:34 Order name: Urine --Ancillary (enter results); Complete Time: 05:18 mw2 12/11 04:15 Order name: Urine Dipstick-Ancillary (obtain specimen); Complete Time: 04:28 jennifer 12/11 04:15 Order name: Urine Test (obtain specimen); Complete Time: 04:28 jennifer Administered Medications: 04:28 Drug: NS 0.9% 1000 ml Route: IV; Rate: 1 bolus; Site: right antecubital; ak1 05:28 Follow up: IV Status: Completed infusion; IV Intake: 1000ml aa1 04:44 Drug: Zofran 4 mg Route: IVP; Site: right antecubital; aa1 05:44 Follow up: Response: No adverse reaction; Nausea is decreased aa1 04:46 Drug: morphine 2 mg Route: IVP; Site: right antecubital; aa1 05:46 Follow up: Response: No adverse reaction; Pain is decreased aa1 04:47 Drug: ProTONIX 40 mg Route: IVP; Site: right antecubital; aa1 05:47 Follow up: Response: No adverse reaction; Pain is decreased aa1 Disposition: 12/11/18 05:30 Discharged to Home. Impression: Functional dyspepsia, Abdominal tenderness. - Condition is Stable. - Discharge Instructions: Abdominal Pain, Adult, Abdominal Pain, Adult, Fine-ak-Sbob, Indigestion, Kkyy-et-Bvof. - Prescriptions for Bentyl 20 mg Oral Tablet - take 1 tablet by ORAL route every 6 hours As needed; 20 tablet. Protonix 40 mg Oral Tablet - take 1 tablet by ORAL route once daily; 30 tablet. Tylenol- Codeine #3 300-30 mg Oral Tablet - take 2 tablets by ORAL route every 6 hours As needed; 20 tablet. Zofran 4 mg Oral Tablet - take 1 tablet by ORAL route every 12 hours As needed; 20 tablet. - Medication Reconciliation Form, Thank You Letter, Antibiotic Education, Prescription Opioid Use form. - Follow up: Private Physician; When: 2 - 3 days; Reason: Recheck today's complaints, Continuance of care, Re-evaluation by your physician. Follow up: Kristofer Mariano MD; When: 2 - 3 days; Reason: Recheck today's complaints, Continuance of care, Re-evaluation by your physician. - Problem is new. - Symptoms have improved. Signatures: Dispatcher [employer] Zuleika Ochoa RN RN aa1 Jh Hogan MD MD cha Krenek, Amber RN RN ak1 Corrections: (The following items were deleted from the chart) 06:06 05:30 12/11/2018 05:30 Discharged to Home. Impression: Functional dyspepsia; Abdominal aa1 tenderness. Condition is Stable. Forms are Medication Reconciliation Form, Thank You Letter, Antibiotic Education, Prescription Opioid Use. Follow up: Private Physician; When: 2 - 3 days; Reason: Recheck today's complaints, Continuance of care, Re-evaluation by your physician. Follow up: Kristofer Mariano; When: 2 - 3 days; Reason: Recheck today's complaints, Continuance of care, Re-evaluation by your physician. Problem is new. Symptoms have improved. jennifer
[2018-12-11 06:14] VITALS: BP 124/71; TEMP 97.8; O2SAT 99
== END 2018-12-11 06:06 | disposition home or self-care (01) ==
LOC: ER 03:47
DX: K30 Functional dyspepsia (principal)
CPT/HCPCS: 36415; 80048; 80076; 81003; 81025; 83690; 85025; 85379; 96361; 96374; 96375; 99284; C9113; J2405; J2550; J7030

== ENCOUNTER 2019-02-01 08:04 | Emergency (ER) | payer SELFPAY ==
--- NOTE | 2019-02-01 09:17 | ER ---
Nurse's Notes [facility] Name: Melissa August Age: 33 yrs Sex: Female : 1985 Arrival Date: 02/01/2019 Time: 08:06 Bed 15 Private MD: Diagnosis: Pain in left foot Presentation: 02/01 08:28 Presenting complaint: Patient states: LEFT FOOT PAIN x2 DAYS. Transition of care: bp patient was not received from another setting of care. Onset of symptoms is unknown. Risk Assessment: Do you want to hurt yourself or someone else? Patient reports no desire to harm self or others. Initial Sepsis Screen: Does the patient meet any 2 criteria? HR > 90 bpm. No. Patient's initial sepsis screen is negative. Does the patient have a suspected source of infection? No. Patient's initial sepsis screen is negative. Care prior to arrival: None. 08:28 Method Of Arrival: Ambulatory bp 08:28 Acuity: ARCELIA 4 bp Triage Assessment: 08:32 General: Appears in no apparent distress. comfortable, obese, Behavior is cooperative, bp appropriate for age, anxious. Pain: Complains of pain in left foot. EENT: No deficits noted. Neuro: No deficits noted. Cardiovascular: No deficits noted. Respiratory: No deficits noted. GI: No signs and/or symptoms were reported involving the gastrointestinal system. : No signs and/or symptoms were reported regarding the genitourinary system. Derm: No deficits noted. Musculoskeletal: No deficits noted. 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 - Social history:: Smoking status: Patient/guardian denies using tobacco. - Ebola Screening: : No symptoms or risks identified at this time. Screenin:35 Abuse screen: Denies threats or abuse. Denies injuries from another. Nutritional bp screening: No deficits noted. Tuberculosis screening: No symptoms or risk factors identified. Fall Risk None identified. Assessment: 08:35 General: SEE TRIAGE NOTE. bp 09:31 Reassessment: PT D/C HOME AMBULATORY, DX WITH FOOT PAIN. bp Vital Signs: 08:32 BP 137 / 87; Pulse 102; Resp 17; Temp 97.5; Pulse Ox 100% ; Weight 97.52 kg; Height 5 bp ft. 4 in. (162.56 cm); 09:31 BP 117 / 80; Pulse 86; Resp 16; Pulse Ox 98% ; bp 08:32 Body Mass Index 36.90 (97.52 kg, 162.56 cm) bp ED Course: 08:06 Patient arrived in ED. rg4 08:24 Colin Reyes, RN is Primary Nurse. bp 08:31 Triage completed. bp 08:32 Arm band placed on. bp 08:33 Austin Kramer PA is PHCP. jr8 08:33 Jesús Moon MD is Attending Physician. jr8 08:35 Patient has correct armband on for positive identification. Bed in low position. Call bp light in reach. Side rails up X2. 09:15 Colin Bernardo DPM is Referral Physician. jr8 09:31 No provider procedures requiring assistance completed. Patient did not have IV access bp during this emergency room visit. Administered Medications: No medications were administered Outcome: 09:15 Discharge ordered by . jr8 09:32 Discharged to home ambulatory. bp 09:32 Condition: stable 09:32 Discharge instructions given to patient, Instructed on discharge instructions, follow up and referral plans. medication usage, Demonstrated understanding of instructions, follow-up care, medications, Prescriptions given X 1. 09:32 Patient left the ED. bp Signatures: Austin Kramer PA PA jr8 Komal King rg4 Colin Reyes, RN RN bp
--- NOTE | 2019-02-01 09:18 | EDPHYS ---
Physician Documentation [facility] Name: Melissa August Age: 33 yrs Sex: Female : 1985 Arrival Date: 02/01/2019 Time: 08:06 Bed 15 Private MD: ED Physician Jesús Moon HPI: 02/01 09:10 This 33 yrs old Female presents to ER via Ambulatory with complaints of Foot jr8 Pain. 09:10 Onset: The symptoms/episode began/occurred acutely, 2 day(s) ago. Modifying factors: jr8 The symptoms are alleviated by nothing. the symptoms are aggravated by weight bearing. Associated signs and symptoms: The patient has no apparent associated signs or symptoms. Severity of symptoms: At their worst the symptoms were mild, in the emergency department the symptoms are unchanged. The patient has not experienced similar symptoms in the past. The patient has not recently seen a physician. Denies trauma to foot. Started hurting two days ago. Could not get into PCP . 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 - Social history:: Smoking status: Patient/guardian denies using tobacco. - Ebola Screening: : No symptoms or risks identified at this time. ROS: 09:10 Eyes: Negative for injury, pain, redness, and discharge, ENT: Negative for injury, jr8 pain, and discharge, Neck: Negative for injury, pain, and swelling, Cardiovascular: Negative for chest pain, palpitations, and edema, Respiratory: Negative for shortness of breath, cough, wheezing, and pleuritic chest pain, Abdomen/GI: Negative for abdominal pain, nausea, vomiting, diarrhea, and constipation, Back: Negative for injury and pain, Skin: Negative for injury, rash, and discoloration, Neuro: Negative for headache, weakness, numbness, tingling, and seizure. 09:10 MS/extremity: Positive for pain, of the left foot. Exam: 09:10 Eyes: Pupils equal round and reactive to light, extra-ocular motions intact. Lids and jr8 lashes normal. Conjunctiva and sclera are non-icteric and not injected. Cornea within normal limits. Periorbital areas with no swelling, redness, or edema. ENT: Nares patent. No nasal discharge, no septal abnormalities noted. Tympanic membranes are normal and external auditory canals are clear. Oropharynx with no redness, swelling, or masses, exudates, or evidence of obstruction, uvula midline. Mucous membranes moist. Neck: Trachea midline, no thyromegaly or masses palpated, and no cervical lymphadenopathy. Supple, full range of motion without nuchal rigidity, or vertebral point tenderness. No Meningismus. Cardiovascular: Regular rate and rhythm with a normal S1 and S2. No gallops, murmurs, or rubs. Normal PMI, no JVD. No pulse deficits. Respiratory: Lungs have equal breath sounds bilaterally, clear to auscultation and percussion. No rales, rhonchi or wheezes noted. No increased work of breathing, no retractions or nasal flaring. Abdomen/GI: Soft, non-tender, with normal bowel sounds. No distension or tympany. No guarding or rebound. No evidence of tenderness throughout. Back: No spinal tenderness. No costovertebral tenderness. Full range of motion. Skin: Warm, dry with normal turgor. Normal color with no rashes, no lesions, and no evidence of cellulitis. Neuro: Awake and alert, GCS 15, oriented to person, place, time, and situation. Cranial nerves II-XII grossly intact. Motor strength 5/5 in all extremities. Sensory grossly intact. Cerebellar exam normal. Normal gait. 09:10 Musculoskeletal/extremity: Extremities: grossly normal except: noted in the left foot: Mild pain to plantar region and medial mid foot without external trauma . Vital Signs: 08:32 BP 137 / 87; Pulse 102; Resp 17; Temp 97.5; Pulse Ox 100% ; Weight 97.52 kg; Height 5 bp ft. 4 in. (162.56 cm); 09:31 BP 117 / 80; Pulse 86; Resp 16; Pulse Ox 98% ; bp 08:32 Body Mass Index 36.90 (97.52 kg, 162.56 cm) bp MDM: 09:10 Patient medically screened. jr8 09:10 Data reviewed: vital signs, nurses notes, and as a result, I will discharge patient. jr8 Data interpreted: Pulse oximetry: on room air is 100 %. Interpretation: normal. Counseling: I had a detailed discussion with the patient and/or guardian regarding: the historical points, exam findings, and any diagnostic results supporting the discharge/admit diagnosis, the need for outpatient follow up, a warp drawer, to return to the emergency department if symptoms worsen or persist or if there are any questions or concerns that arise at home. ED course: Discussed with patient that this could be a tendonopathy or plantar fasciitis. Good shoes need to be work. Roll foot out each morning lightly. Will put on NSAID based product. To f/u with podiatry . Administered Medications: No medications were administered Disposition: 13:39 Co-signature as Attending Physician, Jesús Moon MD I agree with the assessment and kdr plan of care. Disposition: 02/01/19 09:15 Discharged to Home. Impression: Pain in left foot. - Condition is Stable. - Discharge Instructions: Foot Pain. - Prescriptions for meloxicam 15 mg Oral tablet - take 1 tablet by ORAL route once daily As needed; 12 tablet. - Medication Reconciliation Form, Thank You Letter, Antibiotic Education, Prescription Opioid Use form. - Follow up: Colin Bernardo DPM; When: 1 week; Reason: Recheck today's complaints, Continuance of care, Re-evaluation by your physician. - Problem is new. - Symptoms have improved. Signatures: Jesús Moon MD MD kdr Roszak, Josh, PA PA jr8 Colin Reyes, RN RN bp Corrections: (The following items were deleted from the chart) 09:32 09:15 02/01/2019 09:15 Discharged to Home. Impression: Pain in left foot. Condition is bp Stable. Forms are Medication Reconciliation Form, Thank You Letter, Antibiotic Education, Prescription Opioid Use. Follow up: Dr. Colin Bernardo; When: 1 week; Reason: Recheck today's complaints, Continuance of care, Re-evaluation by your physician. Problem is new. Symptoms have improved. jr8
[2019-02-01 11:27] VITALS: TEMP 97.5
[2019-02-01 11:28] VITALS: BP 117/80; O2SAT 98
== END 2019-02-01 09:32 | disposition home or self-care (01) ==
LOC: ER 08:04
DX: M79.672 Pain in left foot (principal); F41.9 Anxiety disorder, unspecified; F32.9 Major depressive disorder, single episode, unspecified
CPT/HCPCS: 99282

== ENCOUNTER 2020-01-09 21:28 | Emergency (ER) | payer BC, SELFPAY ==
[2020-01-09] MEDS ORDERED: ALBUTEROL INHALER 60 PUFF/8 GM IH ONE (22:22)
[2020-01-09] MEDS ORDERED: BENZONATATE 100 MG CAP PO ONE (22:22)
[2020-01-09] MEDS ORDERED: NA CHLORIDE 0.9% 1,000 ML ONE (23:03)
[2020-01-09] MEDS ORDERED: dexAMETHasone 10 MG/ML VIAL ONE (23:03)
[2020-01-09 23:12] LABS: Absolute Lymphocytes (CBC) 1.5 K/uL (0.7-4.9); Basophils % 0.4 % (0-1.3); Hematocrit 37.9 % (36.0-45.0); Lymphocytes % 36.5 % (15.3-44.8); MPV 8.9 fL (7.6-11.3); RBC Red Blood Cell Count 4.32 M/uL (3.86-4.86)
[2020-01-09 23:15] LABS: Protime INR 1.05
[2020-01-09 23:28] LABS: ALT/SGPT 163 U/L (12-78); AST/SGOT 162 U/L (15-37); Albumin 3.7 g/dL (3.4-5.0); Alkaline Phosphatase 189 U/L (45-117); BUN Blood Urea Nitrogen 8 mg/dL (7-18); Bicarbonate 23 mmol/L (21-32); Bilirubin Direct 0.1 mg/dL (0-0.2); Bilirubin Total 0.4 mg/dL (0.2-1.0); Glucose Level 106 mg/dL (74-106); Magnesium 2.2 mg/dL (1.8-2.4); Potassium 3.7 mmol/L (3.5-5.1); Protein, Total 8.4 g/dL (6.4-8.2); Sodium Level 139 mmol/L (136-145); Troponin (Emerg Dept Use Only) < 0.02 ng/mL (0.0-0.045)
--- NOTE | 2020-01-09 23:58 | EDPHYS ---
Physician Documentation [facility] Name: Melissa August Age: 34 yrs Sex: Female : 1985 Arrival Date: 01/09/2020 Time: 21:33 Bed 5 Private MD: Blas Patino ED Physician Adrian Alford HPI: 01/08 22:10 This 34 yrs old Female presents to ER via Ambulatory with complaints of cp Shortness Of Breath - covid +. 23:47 Patient reports recent blood work drawn by PCP showed elevated liver enzymes. Patient cp reports history of cholecystectomy. Reports abdominal pain with cough. 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 - Social history:: Smoking status: Patient denies any tobacco usage or history of. ROS: 22:15 Constitutional: Negative for body aches, chills, fever, poor PO intake. cp 22:15 Eyes: Negative for injury, pain, redness, and discharge. cp 22:15 ENT: Negative for ear pain, sore throat, difficulty swallowing, difficulty handling secretions. 22:15 Cardiovascular: Positive for chest pain, with cough, Negative for edema, palpitations. 22:15 Respiratory: Positive for cough, "sounds productive", shortness of breath, at rest. Negative for wheezing. 22:15 Abdomen/GI: Negative for abdominal pain, nausea, vomiting, and diarrhea, constipation, black/tarry stool, rectal bleeding. 22:15 Back: Negative for radiated pain. 22:15 Skin: Negative for rash. 22:15 Neuro: Negative for altered mental status, headache, numbness, weakness. 22:15 All other systems are negative. Exam: 22:18 Constitutional: The patient appears in no acute distress, alert, awake, cp non-diaphoretic, non-toxic, well developed, well nourished, obese. 22:18 Head/Face: Normocephalic, atraumatic. cp 22:18 Eyes: Periorbital structures: appear normal, Conjunctiva: normal, no exudate, no injection, Sclera: no appreciated abnormality, Lids and lashes: appear normal, bilaterally. 22:18 ENT: External ear(s): are unremarkable, Nose: is normal, Mouth: Lips: moist, Oral mucosa: moist, Posterior pharynx: Airway: no evidence of obstruction, patent, Tonsils: are normal in appearance. 22:18 Neck: ROM/movement: is normal, is supple, no meningismus, no nuchal rigidity. 22:18 Chest/axilla: Inspection: normal, Palpation: is normal, no crepitus, no tenderness. 22:18 Cardiovascular: Rate: normal, Rhythm: regular, Heart sounds: murmur, not appreciated, Edema: is not appreciated, JVD: is not appreciated. 22:18 Respiratory: the patient does not display signs of respiratory distress, Respirations: normal, no use of accessory muscles, no retractions, labored breathing, is not present, Breath sounds: bronchial sounds, that are mild, are heard diffusely, decreased breath sounds, are not appreciated, stridor, is not appreciated, wheezing: is not appreciated. 22:18 Abdomen/GI: Inspection: abdomen appears normal, Palpation: abdomen is soft and non-tender, in all quadrants. 22:18 Back: pain, is absent, ROM is normal. 22:18 Skin: no rash present. 22:18 Neuro: Orientation: to person, place \\T\\ time. Mentation: is normal. 23:12 ECG was reviewed by the Attending Physician. cp Vital Signs: 21:42 BP 123 / 96; Pulse 90; Resp 20; Temp 97.3; Pulse Ox 100% ; Weight 108.41 kg; Height 5 sv ft. 4 in. (162.56 cm); 23:00 BP 123 / 62; Pulse 80; Resp 17; Pulse Ox 98% ; rr5 01/09 00:10 BP 117 / 70; Pulse 85; Resp 19; Pulse Ox 99% ; rr5 01/08 21:42 Body Mass Index 41.02 (108.41 kg, 162.56 cm) sv MDM: 01/08 21:51 Patient medically screened. cp 23:00 Differential diagnosis: Bronchitis Myocardial Infarction pneumonia, Pneumothorax cp pulmonary edema, Pulmonary Embolism Sepsis. 23:55 Data reviewed: vital signs, nurses notes, lab test result(s), EKG, radiologic studies, cp plain films. 23:55 Test interpretation: by ED physician or midlevel provider: ECG, chest xray negative for cp focal pneumonia. Counseling: I had a detailed discussion with the patient and/or guardian regarding: the historical points, exam findings, and any diagnostic results supporting the discharge/admit diagnosis, lab results, radiology results, the need for outpatient follow up, a family practitioner, to return to the emergency department if symptoms worsen or persist or if there are any questions or concerns that arise at home. ED course: VSS. Patient appears non-toxic and not in respiratory distress. Oxygen sats 99% on room air. Will discharge to home for continued monitoring. 01/08 22:07 Order name: Basic Metabolic Panel; Complete Time: 23:39 cp 01/08 23:39 Interpretation: Normal except: CL 108; GFR 80. cp 01/08 22:07 Order name: CBC with Diff; Complete Time: 23:39 cp 01/08 23:39 Interpretation: Normal except: WBC 4.2; PLT 111. cp 01/08 22:07 Order name: LFT's; Complete Time: 23:39 cp 01/08 23:39 Interpretation: Normal except: AST 162; ALT 163; ALK 189; TP 8.4; GLOB 4.7; A/G 0.8. cp 01/08 22:07 Order name: Magnesium; Complete Time: 23:39 cp 01/08 22:07 Order name: PT-INR; Complete Time: 23:39 cp 01/08 22:07 Order name: Troponin (emerg Dept Use Only); Complete Time: 23:39 cp 01/08 22:04 Order name: XRAY Chest (1 view) cp 01/08 22:07 Order name: EKG; Complete Time: 22:08 cp 01/08 22:07 Order name: D-Dimer; Complete Time: 23:39 cp 01/08 22:04 Order name: Urine Test (obtain specimen); Complete Time: 22:07 cp 01/08 22:07 Order name: Cardiac monitoring; Complete Time: 23:10 cp 01/08 22:07 Order name: EKG - Nurse/Tech; Complete Time: 23:10 cp 01/08 22:07 Order name: IV Saline Lock; Complete Time: 23:10 cp 01/08 22:07 Order name: Labs collected and sent; Complete Time: 23:10 cp 11/18 22:07 Order name: O2 Per Protocol; Complete Time: 23:10 cp 01/08 22:07 Order name: O2 Sat Monitoring; Complete Time: 23:10 cp EC:12 Rate is 90 beats/min. Rhythm is regular. NM interval is normal. QRS interval is normal. cp QT interval is normal. T waves are Inverted in lead III. Interpreted by me. Reviewed by me. Administered Medications: 22:18 Drug: Albuterol HFA Inhaler 2 puffs Route: Inhalation; ea 22:18 Drug: Tessalon Perle 200 mg Route: PO; ea 23:10 Follow up: Response: No adverse reaction rr5 22:55 Drug: NS 0.9% 1000 ml Route: IV; Rate: 1 bolus; Site: right forearm; rr5 23:20 Follow up: Response: No adverse reaction; IV Status: Completed infusion; IV Intake: rr5 1000ml 22:56 Drug: Decadron - Dexamethasone 6 mg Route: IVP; Site: right forearm; rr5 01/09 00:10 Follow up: Response: No adverse reaction rr5 Disposition: 02:14 Co-signature as Attending Physician, Adrian Alford MD. pkl Disposition: 01/09/20 23:57 Discharged to Home. Impression: Coronavirus infection, unspecified, Abnormal results of liver function studies, Shortness of breath. - Condition is Stable. - Discharge Instructions: Shortness of Breath, COVID-19. - Prescriptions for dexamethasone 2 mg Oral tablet - take 1 tablet by ORAL route 3 times per day for 5 days; 15 tablet. Tessalon Perles 100 mg Oral Capsule - take 2 capsule by ORAL route every 8 hours As needed; 30 capsule. Zithromax Z- Danish 250 mg Oral Tablet - take 1 tablet by ORAL route as directed for 5 days Day 1 - take two (2) tablets one time. Day 2, 3, 4 , 5 take one (1) tablet once daily.; 6 tablet. Albuterol Sulfate 90 mcg/actuation - inhale 1-2 puff by INHALATION route every 4-6 hours; 1 Inhaler. - Medication Reconciliation Form, Thank You Letter, Antibiotic Education, Prescription Opioid Use form. - Follow up: Private Physician; When: 1 - 2 days; Reason: Worsening of condition. - Problem is new. - Symptoms have improved. Signatures: Dispatcher [employer] Private Cynthia Machado, RN Kenn Cesar RN RN sg Lam, Pin, MD MD pkl Page, Corey, TICO PA cp Pam Almeida, RN Herson Gaspar ea RN RN rr5 Corrections: (The following items were deleted from the chart) 01/08 23:57 23:57 01/09/2020 23:57 Discharged to Home. Impression: Coronavirus infection, cp unspecified; Abnormal results of liver function studies. Condition is Stable. Forms are Medication Reconciliation Form, Thank You Letter, Antibiotic Education, Prescription Opioid Use. Follow up: Private Physician; When: 1 - 2 days; Reason: Worsening of condition. Problem is new. Symptoms have improved. cp 01/09 00:13 01/08 23:57 01/09/2020 23:57 Discharged to Home. Impression: Coronavirus infection, rr5 unspecified; Abnormal results of liver function studies; Shortness of breath. Condition is Stable. Discharge Instructions: Shortness of Breath, COVID-19. Forms are Medication Reconciliation Form, Thank You Letter, Antibiotic Education, Prescription Opioid Use. Follow up: Private Physician; When: 1 - 2 days; Reason: Worsening of condition. Problem is new. Symptoms have improved. cp
--- NOTE | 2020-01-09 23:58 | ER ---
Nurse's Notes [facility] Name: Melissa August Age: 34 yrs Sex: Female : 1985 Arrival Date: 01/09/2020 Time: 21:33 Bed 5 Private MD: Blas Patino Diagnosis: Coronavirus infection, unspecified;Abnormal results of liver function studies;Shortness of breath Presentation: 01/08 21:40 Chief complaint: Patient states: SOB x 2 days. COVID-19 POSITIVE today. "I want sv something for my SOB.". Coronavirus screen: Client denies travel out of the [place] in the last 14 days. Client presents with at least one sign or symptom that may indicate coronavirus-19. Standard/surgical mask placed on the client. Provider contacted for isolation considerations. Client reports previous positive COVID test result. Date of collection: January 09, 2020. Ebola Screen: No symptoms or risks identified at this time. Risk Assessment: Do you want to hurt yourself or someone else? Patient reports no desire to harm self or others. Onset of symptoms was January 07, 2020. 21:40 Method Of Arrival: Ambulatory sv 21:40 Acuity: ARCELIA 4 sv 21:42 Initial Sepsis Screen: Does the patient meet any 2 criteria? No. Patient's initial sv sepsis screen is negative. Does the patient have a suspected source of infection? No. Patient's initial sepsis screen is negative. Triage Assessment: 21:44 General: Appears in no apparent distress. comfortable, Behavior is calm, cooperative, sv appropriate for age. Pain: Denies pain. Neuro: Level of Consciousness is awake, alert, obeys commands, Oriented to person, place, time, situation, Moves all extremities. Full function Gait is steady. Respiratory: Reports shortness of breath Respiratory effort is even, unlabored, Respiratory pattern is regular, symmetrical, Onset: The symptoms/episode began/occurred 2 days ago, the patient has mild shortness of breath. 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 - Social history:: Smoking status: Patient denies any tobacco usage or history of. Screenin:51 Abuse screen: Denies threats or abuse. Denies injuries from another. Nutritional rr5 screening: No deficits noted. Tuberculosis screening: No symptoms or risk factors identified. Fall Risk IV access (20 points). Total Zaragoza Fall Scale indicates No Risk (0-24 pts). Assessment: 22:00 General: Appears in no apparent distress. uncomfortable, Behavior is calm, cooperative, rr5 appropriate for age. 22:00 Pain: Denies pain. Neuro: Level of Consciousness is awake, alert, obeys commands, rr5 Oriented to person, place, time. Cardiovascular: Capillary refill < 3 seconds Patient's skin is warm and dry. Rhythm is regular. Respiratory: Reports shortness of breath Airway is patent Respiratory effort is even, unlabored, Respiratory pattern is regular, symmetrical, GI: No signs and/or symptoms were reported involving the gastrointestinal system. : No signs and/or symptoms were reported regarding the genitourinary system. EENT: No signs and/or symptoms were reported regarding the EENT system. Derm: Skin is intact, is healthy with good turgor, Skin temperature is warm. Musculoskeletal: Capillary refill < 3 seconds. 23:10 Reassessment: Patient appears in no apparent distress at this time. Patient is alert, rr5 oriented x 3, equal unlabored respirations, skin warm/dry/pink. awaiting for results. 01/09 00:12 Reassessment: Patient appears in no apparent distress at this time. Patient is alert, rr5 oriented x 3, equal unlabored respirations, skin warm/dry/pink. discharge instruction given and explained without complaint made. Vital Signs: 01/08 21:42 BP 123 / 96; Pulse 90; Resp 20; Temp 97.3; Pulse Ox 100% ; Weight 108.41 kg; Height 5 sv ft. 4 in. (162.56 cm); 23:00 BP 123 / 62; Pulse 80; Resp 17; Pulse Ox 98% ; rr5 01/09 00:10 BP 117 / 70; Pulse 85; Resp 19; Pulse Ox 99% ; rr5 01/08 21:42 Body Mass Index 41.02 (108.41 kg, 162.56 cm) sv ED Course: 01/08 21:33 Patient arrived in ED. am2 21:34 Blas Patino MD is Private Physician. am2 21:41 Triage completed. sv 21:42 Arm band placed on. sv 21:47 Jh Gatica PA is PHCP. cp 21:47 Adrian Alford MD is Attending Physician. cp 22:00 Patient has correct armband on for positive identification. Placed in gown. Bed in low rr5 position. Call light in reach. 22:32 XRAY Chest (1 view) In Process Unspecified. EDMS 22:47 Herson Rincon, ESTRELLA is Primary Nurse. rr5 22:55 Inserted saline lock: 20 gauge in right forearm, using aseptic technique. Blood rr5 collected. 01/09 00:12 No provider procedures requiring assistance completed. IV discontinued, intact, rr5 bleeding controlled, No redness/swelling at site. Pressure dressing applied. Administered Medications: 01/08 22:18 Drug: Albuterol HFA Inhaler 2 puffs Route: Inhalation; ea 22:18 Drug: Tessalon Perle 200 mg Route: PO; ea 23:10 Follow up: Response: No adverse reaction rr5 22:55 Drug: NS 0.9% 1000 ml Route: IV; Rate: 1 bolus; Site: right forearm; rr5 23:20 Follow up: Response: No adverse reaction; IV Status: Completed infusion; IV Intake: rr5 1000ml 22:56 Drug: Decadron - Dexamethasone 6 mg Route: IVP; Site: right forearm; rr5 01/09 00:10 Follow up: Response: No adverse reaction rr5 Intake: 01/08 23:20 IV: 1000ml; Total: 1000ml. rr5 Outcome: 23:57 Discharge ordered by . 01/09 00:12 Discharged to home ambulatory. rr5 Condition: stable Discharge instructions given to patient, Instructed on discharge instructions, follow up and referral plans. medication usage, Demonstrated understanding of instructions, follow-up care, medications, Prescriptions given X 4. 00:13 Patient left the ED. rr5 Signatures: Dispatcher [employer] Cynthia Machado RN RN Jh Gatica PA PA cp Moreno, Amanda am2 Pam Almeida RN RN ea Roque, Raymond, RN RN rr5 Corrections: (The following items were deleted from the chart) 01/08 21:45 21:40 Onset of symptoms was January 09, 2020 sv sv
--- NOTE | 2020-01-10 06:03 | EKG ---
Test Date: 2020-01-09 Test Time: 23:06:15 [address]: NAMRATA MEASUREMENT RESULTS: Intervals: Rate: 90 NE: 160 QRSD: 80 QT: 366 QTc: 447 [place]: P: 23 NE: 160 QRS: 2 T: 2 INTERPRETIVE STATEMENTS: Normal sinus rhythm Normal ECG Compared to ECG 09/24/2018 01:57:46 Sinus tachycardia no longer present Electronically Signed On 01-10-20 06:02:54 [employer]ACE [employer] STOR[employer] CLERK by Rico Ross
--- NOTE | 2020-01-10 08:09 | RAD REPORT ---
EXAM DESCRIPTION: RAD - Chest Single View - 01/09/2020 10:34 pm CLINICAL HISTORY: Cough;SOB, COVID positive COMPARISON: Portable September 2018 TECHNIQUE: AP portable chest image was obtained 01/09/2020 10:34 pm . FINDINGS: Lung volumes are low. No focal lung parenchymal process evident. Shallow inspiration and o verlying soft tissues accentuate bibasilar lung markings. Heart and vasculature are normal. No measur able pleural effusion and no pneumothorax. No acute bony abnormality seen. No acute aortic findings s uspected. IMPRESSION: No acute cardiopulmonary process. No significant change from comparison study.
[2020-01-10 10:31] VITALS: TEMP 97.3
[2020-01-10 10:34] VITALS: BP 117/70; O2SAT 99
== END 2020-01-10 00:13 | disposition home or self-care (01) ==
LOC: ER 21:28
DX: U07.1 COVID-19 (principal); R94.5 Abnormal results of liver function studies
CPT/HCPCS: 93005; 85025; 80048; 36415; 83735; 85610; 85379; 80076; 84484; 71045; 96374; 99284; J1100; J7030

== ENCOUNTER 2020-02-13 08:59 | Emergency (ER) | payer BC ==
[2020-02-13 23:21] LABS: Urine Bacteria <20 /HPF (<20); Urine RBC <5 /HPF (NONE SEEN)
[2020-02-13 23:22] LABS: Urine Blood NEGATIVE (NEG); Urine Glucose NEGATIVE (NEG); Urine Protein 1+ (NEG); Urine Specific Gravity >1.030 (1.005-1.030); Urine pH 6.5 (5.0-7.0)
[2020-02-13] MEDS ORDERED: HYDROCODONE/APAP 7.5/325 MG TAB ONE (23:24)
[2020-02-13] MEDS ORDERED: KETOROLAC 30 MG/ML INJ ONE (23:24)
--- NOTE | 2020-02-14 00:28 | EDPHYS ---
Physician Documentation [facility] Name: Melissa August Age: 34 yrs Sex: Female : 1985 Arrival Date: 02/13/2020 Time: 21:00 Bed 23 Private MD: ED Physician Silvio Solano HPI: 02/12 23:09 This 34 yrs old Female presents to ER via Ambulatory with complaints of Side snw Pain. 23:09 The patient complains of pain in the right mid back. Location: posterior aspect of snw right lateral abdomen. Onset: The symptoms/episode began/occurred acutely, 3 day(s) ago, and became persistent. Modifying factors: The symptoms are alleviated by nothing. the symptoms are aggravated by movement. Severity of pain: At its worst the pain was moderate severe in the emergency department the pain is unchanged. The patient has not experienced similar symptoms in the past. It is unknown whether or not the patient has recently seen a physician. hx of renal calculi x 2 episodes. Historical: - Allergies: 21:12 No Known Allergies; ll1 - PMHx: 21:12 Anxiety; Depression; DVT; Gene mutation "MTHFR"; PE; Sleep Apnea; ll1 - PSHx: 21:12 Cholecystectomy; ; ectopic with fallopian tube ruptured.; ll1 - Immunization history:: Flu vaccine is up to date. - Social history:: Smoking status: Patient denies any tobacco usage or history of. ROS: 23:09 Constitutional: Negative for fever, chills, and weight loss, Eyes: Negative for injury, snw pain, redness, and discharge, ENT: Negative for injury, pain, and discharge, Neck: Negative for injury, pain, and swelling, Cardiovascular: Negative for chest pain, palpitations, and edema, Respiratory: Negative for shortness of breath, cough, wheezing, and pleuritic chest pain, : Negative for injury, bleeding, discharge, and swelling, MS/Extremity: Negative for injury and deformity, Skin: Negative for injury, rash, and discoloration, Neuro: Negative for headache, weakness, numbness, tingling, and seizure, Psych: Negative for depression, anxiety, suicide ideation, homicidal ideation, and hallucinations. 23:09 Abdomen/GI: Positive for abdominal pain, nausea. 23:09 Back: Positive for pain with movement, flank pain, on the right. Exam: 23:07 Constitutional: This is a well developed, well nourished patient who is awake, alert, snw and in no acute distress. Head/Face: Normocephalic, atraumatic. Eyes: Pupils equal round and reactive to light, extra-ocular motions intact. Lids and lashes normal. Conjunctiva and sclera are non-icteric and not injected. Cornea within normal limits. Periorbital areas with no swelling, redness, or edema. ENT: Nares patent. No nasal discharge, no septal abnormalities noted. Tympanic membranes are normal and external auditory canals are clear. Oropharynx with no redness, swelling, or masses, exudates, or evidence of obstruction, uvula midline. Mucous membranes moist. Neck: Trachea midline, no thyromegaly or masses palpated, and no cervical lymphadenopathy. Supple, full range of motion without nuchal rigidity, or vertebral point tenderness. No Meningismus. Chest/axilla: Normal chest wall appearance and motion. Nontender with no deformity. No lesions are appreciated. Cardiovascular: Regular rate and rhythm with a normal S1 and S2. No gallops, murmurs, or rubs. Normal PMI, no JVD. No pulse deficits. Respiratory: Lungs have equal breath sounds bilaterally, clear to auscultation and percussion. No rales, rhonchi or wheezes noted. No increased work of breathing, no retractions or nasal flaring. Back: No spinal tenderness. No costovertebral tenderness. Full range of motion. Skin: Warm, dry with normal turgor. Normal color with no rashes, no lesions, and no evidence of cellulitis. MS/ Extremity: Pulses equal, no cyanosis. Neurovascular intact. Full, normal range of motion. Neuro: Awake and alert, GCS 15, oriented to person, place, time, and situation. Cranial nerves II-XII grossly intact. Motor strength 5/5 in all extremities. Sensory grossly intact. Cerebellar exam normal. Normal gait. Psych: Awake, alert, with orientation to person, place and time. Behavior, mood, and affect are within normal limits. 23:07 Abdomen/GI: Inspection: abdomen appears normal, Bowel sounds: normal, Palpation: mild abdominal tenderness, moderate abdominal tenderness, in the posterior aspect of right lateral abdomen and right upper quadrant. Vital Signs: 21:12 BP 142 / 90; Pulse 91; Resp 18; Temp 98.4; Pulse Ox 99% ; Weight 106.59 kg; Height 5 ll1 ft. 4 in. (162.56 cm); Pain 9/10; 21:12 Body Mass Index 40.34 (106.59 kg, 162.56 cm) ll1 MDM: 22:52 Patient medically screened. snw 02/13 00:06 Data reviewed: vital signs, nurses notes. Data interpreted: Pulse oximetry: on room air snw is 99 %. Interpretation: normal. Counseling: I had a detailed discussion with the patient and/or guardian regarding: the historical points, exam findings, and any diagnostic results supporting the discharge/admit diagnosis, the presence of at least one elevated blood pressure reading (>120/80) during this emergency department visit, lab results, radiology results, to return to the emergency department if symptoms worsen or persist or if there are any questions or concerns that arise at home. Response to treatment: the patient's symptoms have markedly improved after treatment, "pain almost gone". Special discussion: Based on the patient's Hx, exam, and Dx evaluation, there is no indication for emergent surgery or inpatient Tx. It is understood by the patient/guardian that if the Sx's persist or worsen they need to return immediately for re-evaluation. I have referred the patient to see his PCP for further evaluation of high blood pressure. Based on the history and exam findings, there is no indication for further emergent testing or inpatient evaluation. I discussed with the patient/guardian the need to see the primary care provider for further evaluation of the symptoms. 02/12 21:36 Order name: Urine Culture snw 02/12 21:36 Order name: Urine Microscopic Only; Complete Time: 23:22 snw 02/12 23:06 Order name: Urine Dipstick--Ancillary (enter results); Complete Time: 23:22 mw2 02/12 23:06 Order name: Urine --Ancillary (enter results); Complete Time: 23:22 mw2 02/12 23:07 Order name: CT Stone Protocol snw 02/12 21:36 Order name: Urine Test (obtain specimen); Complete Time: 23:04 snw 02/12 21:36 Order name: Urine Dipstick-Ancillary (obtain specimen); Complete Time: 23:04 snw Administered Medications: 12/23 23:16 Drug: TORadol 30 mg Route: IM; Site: right deltoid; sg 23:16 Drug: [place] (7.5 mg-325 mg) 1 tabs Route: PO; sg Disposition: 02/13 02:05 Co-signature as Attending Physician, Silvio Solano MD. ma2 Disposition: 02/14/20 00:28 Discharged to Home. Impression: Volume depletion, Low back pain, Other abdominal pain. - Condition is Stable. - Discharge Instructions: Back Pain, Adult, Hypertension, Back Injury Prevention, [id number], Rehydration, Adult, Heat Therapy. - Prescriptions for Diclofenac Sodium 75 mg Oral Tablet Sustained Release - take 1 tablet by ORAL route 2 times per day; 30 tablet. orphenadrine citrate 100 mg Oral Tablet Sustained Release - take 1 tablet by ORAL route 2 times per day As needed; 20 tablet. - Work release form, Medication Reconciliation Form, Thank You Letter, Antibiotic Education, Prescription Opioid Use form. - Follow up: Private Physician; When: 2 - 3 days; Reason: Recheck today's complaints, Continuance of care, Re-evaluation by your physician. Follow up: Emergency Department; When: As needed; Reason: Worsening of condition. Signatures: Dispatcher [employer] EDMS Kenn Chirinos RN RN sg Waters, Shelly, FNP-C SENIOR JAVA ARCHITECT-Silvio Azul MD MD ma2 Jozef Royal RN RN ll1 Corrections: (The following items were deleted from the chart) 01:33 00:28 02/14/2020 00:28 Discharged to Home. Impression: Volume depletion; Low back pain; sg Other abdominal pain. Condition is Stable. Discharge Instructions: Back Pain, Adult, Hypertension, Back Injury Prevention, Efrj-[id number]-Kgic, Rehydration, Adult, Heat Therapy. Prescriptions for Diclofenac Sodium 75 mg Oral Tablet Sustained Release - take 1 tablet by ORAL route 2 times per day; 30 tablet, orphenadrine citrate 100 mg Oral Tablet Sustained Release - take 1 tablet by ORAL route 2 times per day As needed; 20 tablet. and Forms are Work release form, Medication Reconciliation Form, Thank You Letter, Antibiotic Education, Prescription Opioid Use. Follow up: Private Physician; When: 2 - 3 days; Reason: Recheck today's complaints, Continuance of care, Re-evaluation by your physician. Follow up: Emergency Department; When: As needed; Reason: Worsening of condition. snw
--- NOTE | 2020-02-14 00:28 | ER ---
Nurse's Notes [facility] Name: Melissa August Age: 34 yrs Sex: Female : 1985 Arrival Date: 02/13/2020 Time: 21:00 Bed 23 Private MD: Diagnosis: Volume depletion;Low back pain;Other abdominal pain Presentation: 02/12 21:12 Chief complaint: Patient states: R flank pain for 2 days. + nausea. No fever. ll1 Coronavirus screen: Client denies travel out of the [place] in the last 14 days. At this time, the client does not indicate any symptoms associated with coronavirus-19. The client reports previous COVID testing was negative. Ebola Screen: Patient denies travel to an Ebola-affected area in the 21 days before illness onset. Initial Sepsis Screen: Does the patient meet any 2 criteria? HR > 90 bpm. No. Patient's initial sepsis screen is negative. Does the patient have a suspected source of infection? Yes: Acute abdominal pain. Risk Assessment: Do you want to hurt yourself or someone else? Patient reports no desire to harm self or others. Onset of symptoms was February 12, 2020. 21:12 Method Of Arrival: Ambulatory ll1 21:12 Acuity: ARCELIA 3 ll1 Historical: - Allergies: 21:12 No Known Allergies; ll1 - PMHx: 21:12 Anxiety; Depression; DVT; Gene mutation "MTHFR"; PE; Sleep Apnea; ll1 - PSHx: 21:12 Cholecystectomy; ; ectopic with fallopian tube ruptured.; ll1 - Immunization history:: Flu vaccine is up to date. - Social history:: Smoking status: Patient denies any tobacco usage or history of. Screenin:20 Abuse screen: Denies threats or abuse. Denies injuries from another. Nutritional sg screening: No deficits noted. Tuberculosis screening: No symptoms or risk factors identified. Never had TB. Fall Risk None identified. Assessment: 21:20 General: Appears in no apparent distress. uncomfortable, well groomed, well developed, sg well nourished, Behavior is calm, cooperative, appropriate for age. Pain: Complains of pain in right mid back and posterior aspect of right lateral abdomen Quality of pain is described as aching, sharp. Neuro: Level of Consciousness is awake, alert, obeys commands, Oriented to person, place, time, Facial symmetry appears normal. Cardiovascular: Capillary refill is brisk in bilateral fingers Patient's skin is warm and dry. Chest pain is denied. Respiratory: Airway is patent Respiratory effort is even, unlabored, Respiratory pattern is regular, symmetrical. GI: Abdomen is round non-distended, Reports upper abdominal pain. : No signs and/or symptoms were reported regarding the genitourinary system. EENT: No signs and/or symptoms were reported regarding the EENT system. Derm: Skin is pink, warm \\T\\ dry. Musculoskeletal: Circulation, motion, and sensation intact. Range of motion: intact in all extremities. Vital Signs: 21:12 BP 142 / 90; Pulse 91; Resp 18; Temp 98.4; Pulse Ox 99% ; Weight 106.59 kg; Height 5 ll1 ft. 4 in. (162.56 cm); Pain 9/10; 21:12 Body Mass Index 40.34 (106.59 kg, 162.56 cm) ll1 ED Course: 21:00 Patient arrived in ED. rg4 21:11 Arm band placed on. ll1 21:15 Triage completed. ll1 21:20 Patient has correct armband on for positive identification. Bed in low position. Call sg light in reach. Side rails up X2. Pulse ox on. NIBP on. Warm blanket given. Head of bed elevated. 21:20 No provider procedures requiring assistance completed. sg 22:30 Urine collected: clean catch specimen. sg 22:37 Snehal Hines F[facility]-C [facility]. snw 22:37 Silvio Solano MD is Attending Physician. snw 22:58 Kenn Chirinos, ESTRELLA is Primary Nurse. sg 02/13 00:51 CT Stone Protocol In Process Unspecified. EDMS 01:30 Patient did not have IV access during this emergency room visit. sg Administered Medications: 02/12 23:16 Drug: TORadol 30 mg Route: IM; Site: right deltoid; sg 23:16 Drug: [place] (7.5 mg-325 mg) 1 tabs Route: PO; sg Outcome: 02/13 00:28 Discharge ordered by . snw 01:30 Discharged to home ambulatory, with family. sg 01:30 Condition: good 01:30 Discharge instructions given to patient, Instructed on discharge instructions, follow up and referral plans. no drinking with medication, no driving heavy equipment, medication usage, safety practices, Demonstrated understanding of instructions, follow-up care, medications, Prescriptions given X 2. 01:33 Patient left the ED. sg Signatures: Dispatcher [employer] EDKenn Oliva, RN RN sg Snehal Hines, HEALTH NURSE-C HEALTH NURSE-Rafaelw Komal King rg4 Jozef Royal RN RN ll1
[2020-02-14 01:38] VITALS: BP 142/90; TEMP 98.4; O2SAT 99
--- NOTE | 2020-02-14 11:11 | RAD REPORT ---
EXAM DESCRIPTION: CT - Stone Protocol - 02/14/2020 6:40 am CLINICAL HISTORY: FLANK PAIN COMPARISON: 12/08/2018 TECHNIQUE: CT of the abdomen and pelvis without IV contrast. Evaluation of the solid organs and vasc ulature is suboptimal due to lack of IV contrast. FINDINGS: Lung Bases: Minimal bilateral peripheral groundglass opacities. Bones: No destructive bone lesions identified. Abdomen: Liver: Hepatomegaly and hepatic steatosis. Gallbladder: Prior cholecystectomy. Spleen, Pancreas, and Adrenal Glands: Severe splenomegaly. Pancreas and adrenal glands are unremark able. Kidneys: The kidneys have normal size without evidence of hydronephrosis. No obstructing ureteral darryl culi. Vasculature: The aorta and IVC have normal caliber and position. Stomach: The stomach and duodenum have normal course. Other: No free intraperitoneal air. No free fluid or lymphadenopathy. Pelvis: Bladder: Urinary bladder is unremarkable. Bowel: No dilated loops of large or small bowel. Appendix: Normal appendix. Pelvis: Uterus is not enlarged. IMPRESSION: 1. Scattered minimal patchy peripheral groundglass opacities in the visualized lung base s. Commonly reported imaging features of viral pneumonia are present. Other processes such as influen za pneumonia and organizing pneumonia, as can be seen with drug toxicity and connective tissue diseas e, can cause a similar imaging pattern. PneTyp Reference: https://pubs.rsna.org/doi/full/10.1148/ryct.4726266086 2. Splenomegaly. 3. Hepatomegaly and hepatic steatosis. This exam was performed according to our departmental dose-optimization program, which includes autom ated exposure control, adjustment of the mA and/or kV according to patient size and/or use of iterati ve reconstruction technique. Electronically signed by: Branden Espinoza 02/14/2020 1:07 AM MACHINE GROUP LEADER Due to temporary technical issues with the PACS/Fluency reporting system, reports are being signed by the in house radiologists without review as a courtesy to insure prompt reporting. The interpreting radiologist is fully responsible for the content of the report.
== END 2020-02-14 01:33 | disposition home or self-care (01) ==
LOC: ER 08:59
DX: E86.9 Volume depletion, unspecified (principal); R10.9 Unspecified abdominal pain
CPT/HCPCS: 74176; 76377; 81003; 81015; 81025; 87086; 87088; 96372; 99284

== ENCOUNTER 2021-12-29 18:11 | Emergency (ER) | payer BC ==
[2021-12-29] MEDS ORDERED: NA CHLORIDE 0.9% 1,000 ML ONE (18:42)
[2021-12-29 18:46] LABS: Absolute Lymphocytes (CBC) 0.5 K/uL (0.7-4.9); Hematocrit 39.5 % (36.0-45.0); Lymphocytes % 3.9 % (15.3-44.8); MCV 86.7 fL (80-100); MPV 8.4 fL (7.6-11.3); RBC Red Blood Cell Count 4.55 M/uL (3.86-4.86)
--- NOTE | 2021-12-29 19:15 | RAD REPORT ---
EXAM DESCRIPTION: RAD - Chest Single View - 12/29/2021 7:00 pm CLINICAL HISTORY: CHEST PAIN Chest pain. COMPARISON: Chest Single View dated 01/09/2020; Chest Single View dated 09/24/2018 FINDINGS: Portable technique limits examination quality. Interstitial markings are slightly prominent which could indicate mild interstitial pneumonitis or in terstitial edema. The heart is normal in size. No displaced fractures.
[2021-12-29 19:16] LABS: Potassium 4.3 mmol/L (3.5-5.1); Troponin High Sensitivity 3.4 pg/mL (<58.9)
[2021-12-29] MEDS ORDERED: KETOROLAC 30 MG/ML INJ ONE (19:19)
[2021-12-29 19:59] LABS: Urine Blood Negative (Negative); Urine Glucose Negative (Negative); Urine Protein Negative (Negative); Urine pH 5.5 (5.0-7.0)
[2021-12-29 20:21] LABS: Urine Mucus Slight /HPF (None Seen); Urine RBC <5 /HPF (None Seen)
[2021-12-29 21:21] LABS: SARS-COV-2 RT PCR NEGATIVE (NEGATIVE)
--- NOTE | 2021-12-29 22:38 | RAD REPORT ---
EXAM DESCRIPTION: CT - Chest For Pe Angio - 12/29/2021 10:02 pm CLINICAL HISTORY: Chest pain. chest pain COMPARISON: Chest For Pe Angio dated 09/24/2018 TECHNIQUE: CT angiogram of the pulmonary arteries was performed with MIP. All CT scans are performed using dose optimization technique as appropriate and may include automated exposure control or mA/KV adjustment according to patient size. FINDINGS: No evidence of pulmonary thromboembolism. No acute aortic finding demonstrated. Mild linear subsegmental atelectasis in the right lung base. The lungs are otherwise clear. No significant pericardial or pleural fluid. No concerning bony finding. IMPRESSION: No evidence of pulmonary thromboembolism. Mild atelectasis right lung base.
[2021-12-29] MEDS ORDERED: LABETALOL 20 MG/4ML SYRINGE IV ONE (22:56)
[2021-12-29] MEDS ORDERED: ASPIRIN 81 MG CHEWABLE TABLET ONE (23:15)
[2021-12-29] MEDS ORDERED: METOPROLOL TAR 25 MG TAB ONE (23:16)
--- NOTE | 2021-12-30 00:11 | EDPHYS ---
Physician Documentation [facility] Name: Melissa August Age: 36 yrs Sex: Female : 1985 Arrival Date: 12/29/2021 Time: 18:14 Bed 18 Private MD: ED Physician Aravind Burroughs HPI: 12/29 18:35 This 36 yrs old Female presents to ER via Ambulatory with complaints of Shortness Of cp Breath, Chest Tightness. 18:35 The patient has shortness of breath at rest. cp 18:35 The patient or guardian reports chest pain that is located primarily in the anterior cp chest wall. 18:35 The chest pain is described as tightness. cp 18:35 Patient reports history of pulmonary embolism. 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 - Social history:: Smoking status: Patient reports the use of cigarette tobacco products, SECOND HAND; SMOKES. ROS: 18:40 Constitutional: Negative for body aches, chills, fever, poor PO intake. cp 18:40 Eyes: Negative for injury, pain, redness, and discharge. cp 18:40 ENT: Negative for drainage from ear(s), ear pain, sore throat, difficulty swallowing, difficulty handling secretions. 18:40 Cardiovascular: Positive for chest pain, palpitations, Negative for edema. 18:40 Respiratory: Positive for shortness of breath, Negative for cough, wheezing. 18:40 Abdomen/GI: Negative for abdominal pain, vomiting, diarrhea, constipation. Exam: 18:33 ECG was reviewed by the Attending Physician. cp 18:45 Constitutional: The patient appears in no acute distress, alert, awake, cp non-diaphoretic, non-toxic, well developed, well nourished. 18:45 Head/Face: Normocephalic, atraumatic. cp 18:45 Eyes: Periorbital structures: appear normal, Conjunctiva: normal, no exudate, no injection, Sclera: no appreciated abnormality, Lids and lashes: appear normal, bilaterally. 18:45 ENT: External ear(s): are unremarkable, Nose: is normal, Mouth: Lips: moist, Oral mucosa: pink and intact, moist, Posterior pharynx: Airway: no evidence of obstruction, patent. 18:45 Neck: ROM/movement: is normal, is supple, without pain, no range of motions limitations, no nuchal rigidity. 18:45 Chest/axilla: Inspection: normal. 18:45 Cardiovascular: Rate: tachycardic, Rhythm: regular, Edema: is not appreciated, JVD: is not appreciated. 18:45 Respiratory: the patient does not display signs of respiratory distress, Respirations: normal, no use of accessory muscles, no retractions, labored breathing, is not present, Breath sounds: are clear throughout, no decreased breath sounds, no stridor, no wheezing. 18:45 Abdomen/GI: Inspection: abdomen appears normal, Palpation: abdomen is soft and non-tender, in all quadrants. 18:45 Back: pain, is absent, ROM is normal. 18:45 Neuro: Orientation: to person, place \\T\\ time. Mentation: is normal, Motor: moves all fours, strength is normal, Sensation: is normal. Vital Signs: 18:19 BP 120 / 86; Pulse 132; Resp 20; Temp 98.3; Pulse Ox 100% ; Weight 92.99 kg; Height 5 iw ft. 4 in. (162.56 cm); 19:30 BP 123 / 82; Pulse 113; Resp 27; Pulse Ox 96% on R/A; jb4 20:55 BP 132 / 84; Pulse 113; Resp 23 S; Pulse Ox 100% on R/A; as6 22:45 BP 138 / 83; Pulse 114; Resp 24; Pulse Ox 100% on R/A; jb4 12/30 00:00 BP 125 / 77; Pulse 105; Resp 24; Pulse Ox 99% on R/A; jb4 12/29 18:19 Body Mass Index 35.19 (92.99 kg, 162.56 cm) iw MDM: 12/29 18:42 Patient medically screened. cp 19:00 Differential diagnosis: abnormal EKG, acute myocardial infarction, anxiety, cp cholecystitis, Cholelithiasis costochondritis, pneumonia, Pneumothorax pulmonary edema, Sepsis. 12/30 00:09 Data reviewed: vital signs, nurses notes, lab test result(s), EKG, radiologic studies, cp CT scan, plain films. 00:09 Test interpretation: by ED physician or midlevel provider: ECG, plain radiologic cp studies. Response to treatment: the patient's symptoms have markedly improved after treatment, and as a result, I will discharge patient. 12/29 18:34 Order name: Basic Metabolic Panel; Complete Time: 19:22 12/29 21:39 Interpretation: Normal except: NA 135; GLUC 122; GFR 68. 12/29 18:34 Order name: CBC with Diff; Complete Time: 19:22 12/29 21:39 Interpretation: Normal except: WBC 11.90; PLT 144; NATALI% 89.8; LYM% 3.9; NEUT A 10.7; cp LYMA 0.5. 12/29 18:34 Order name: Troponin HS; Complete Time: 19:22 12/29 18:41 Order name: Magnesium; Complete Time: 22:49 12/29 18:41 Order name: Urine Microscopic Only; Complete Time: 20:24 12/29 18:41 Order name: D-Dimer; Complete Time: 20:51 12/29 18:34 Order name: XRAY Chest (1 view); Complete Time: 19:22 12/29 18:41 Order name: BNP; Complete Time: 22:49 12/29 19:59 Order name: Urine Dipstick-Ancillary; Complete Time: 20:24 EDKY 12/29 22:49 Interpretation: Normal except: UKET Trace. 12/29 20:01 Order name: Test Urine - POC; Complete Time: 20:24 jb4 12/29 20:26 Order name: COVID-19/FLU A+B (Document "Date of Onset" if Symptomatic); Complete Time: 21:38 12/29 21:38 Interpretation: Reviewed. 12/29 20:52 Order name: CT Chest For PE Angio; Complete Time: 22:49 12/29 18:34 Order name: EKG; Complete Time: 18:34 12/29 18:34 Order name: Cardiac monitoring; Complete Time: 19:14 12/29 18:34 Order name: EKG - Nurse/Tech; Complete Time: 18:34 12/29 18:34 Order name: IV Saline Lock; Complete Time: 18:38 12/29 18:34 Order name: Labs collected and sent; Complete Time: 19:10 12/29 18:34 Order name: O2 Per Protocol; Complete Time: 19:14 iw 12/29 18:34 Order name: O2 Sat Monitoring; Complete Time: 19:14 iw 12/29 18:41 Order name: Urine Dipstick-Ancillary (obtain specimen); Complete Time: 20:00 cp 12/29 18:41 Order name: Urine Test (obtain specimen); Complete Time: 20:00 cp EC/08 18:33 Rate is 120 beats/min. Rhythm is regular. NJ interval is normal. QRS interval is cp normal. QT interval is normal. T waves are Inverted in lead aVR. Interpreted by me. Reviewed by me. Administered Medications: 19:00 Drug: NS 0.9% 1000 ml Route: IV; Rate: 1 bolus; Site: right antecubital; as6 19:48 Follow up: Response: No adverse reaction; IV Status: Completed infusion; IV Intake: jb4 1000ml 19:21 Drug: Ketorolac 15 mg Route: IVP; Site: right antecubital; jb4 19:48 Follow up: Response: No adverse reaction; Marked relief of symptoms jb4 23:14 Not Given (Physician Discretion; nurse ): Labetalol 10 mg IV at calculated rate once cp 23:19 Drug: Aspirin Chewable Tablet 324 mg Route: PO; jb4 12/30 00:23 Follow up: Response: No adverse reaction jb4 12/29 23:19 Drug: Metoprolol 25 mg Route: PO; jb4 12/30 00:23 Follow up: Response: No adverse reaction; Marked relief of symptoms jb4 Disposition Summary: 12/30/21 00:09 Discharge Ordered Location: Home cp Problem: new cp Symptoms: have improved cp Condition: Stable cp Diagnosis - Chest pain, unspecified cp - Palpitations cp Followup: cp - With: Rico Ross MD - When: 2 - 3 days - Reason: Recheck today's complaints Discharge Instructions: - Discharge Summary Sheet cp - Nonspecific Chest Pain, Adult cp - Palpitations cp - Aspirin and Your Heart cp Forms: - Medication Reconciliation Form cp - Thank You Letter cp - Antibiotic Education cp - Prescription Opioid Use cp Prescriptions: - Metoprolol Tartrate 25 mg Oral Tablet - take 0.5 tablet by ORAL route 2 times per day with a meal; 20 tablet; Refills: cp 0, Product Selection Permitted Addendum: 12/31/2021 07:38 Co-signature as Attending Physician, Aravind Burroughs MD. r n Signatures: Dispatcher [employer] Vandana Mendoza, RN Aravind Newton MD MD rn Page, Corey, PA PA cp Bryson, James RN RN jb4 Timbo Cotton RN RN as6
--- NOTE | 2021-12-30 00:11 | ER ---
Nurse's Notes [facility] Name: Melissa August Age: 36 yrs Sex: Female : 1985 Arrival Date: 12/29/2021 Time: 18:14 Bed 18 Private MD: Diagnosis: Chest pain, unspecified;Palpitations Presentation: 12/29 18:19 Chief complaint: Patient states: I CAN FEEL MY HEART RACING, MY WATCH SAYS ITS 135. IM iw GETTING SOB AND IT HURTS IN MY UPPER CHEST WHEN I GET SOB. I JUST GOT OFF [employer]CR[employer] THIS MORNING FOR URINARY TRACT INFECTION BUT OTHERWISE I HAVENT BEEN SICK. Coronavirus screen: Vaccine status: Patient reports being unvaccinated. Client denies travel out of the [place] in the last 14 days. Ebola Screen: Patient negative for fever greater than or equal to 101.5 degrees Fahrenheit, and additional compatible Ebola Virus Disease symptoms Patient denies exposure to infectious person. Patient denies travel to an Ebola-affected area in the 21 days before illness onset. Initial Sepsis Screen: Does the patient meet any 2 criteria? No. Patient's initial sepsis screen is negative. Does the patient have a suspected source of infection? No. Patient's initial sepsis screen is negative. Risk Assessment: Do you want to hurt yourself or someone else? Patient reports no desire to harm self or others. 18:19 Method Of Arrival: Ambulatory iw 18:19 Acuity: ARCELIA 3 iw Triage Assessment: 18:22 General: Appears uncomfortable, well groomed, well developed, Behavior is calm, iw cooperative, appropriate for age, anxious. Respiratory: Reports shortness of breath labored breathing Onset: The symptoms/episode began/occurred gradually, the patient has mild shortness of breath. 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 - Social history:: Smoking status: Patient reports the use of cigarette tobacco products, SECOND HAND; SMOKES. Screenin:00 Abuse screen: Denies threats or abuse. Nutritional screening: No deficits noted. jb4 Tuberculosis screening: No symptoms or risk factors identified. 19:00 Fall Risk None identified. jb4 Assessment: 19:21 General: Appears in no apparent distress. comfortable, Behavior is calm, cooperative, jb4 appropriate for age. Pain: Complains of pain in Headache Pain does not radiate. Pain currently is 5 out of 10 on a pain scale. Neuro: Level of Consciousness is awake, alert, obeys commands, Oriented to person, place, time, situation. Cardiovascular: Patient's skin is warm and dry. Respiratory: Airway is patent Respiratory effort is even, unlabored, Respiratory pattern is regular, symmetrical. GI: No signs and/or symptoms were reported involving the gastrointestinal system. : No signs and/or symptoms were reported regarding the genitourinary system. EENT: No signs and/or symptoms were reported regarding the EENT system. Derm: Skin is intact, Skin is pink, warm \\T\\ dry. Musculoskeletal: Circulation, motion, and sensation intact. Range of motion: intact in all extremities. 19:49 Respiratory: Breath sounds are clear in right upper lobe, left upper lobe, right middle jb4 lobe, left lower lobe, left posterior upper lobe, right posterior upper lobe, left posterior lower lobe and right posterior middle lobe Breath sounds are diminished in right lower lobe and right posterior lower lobe. 20:30 Reassessment: Patient appears in no apparent distress at this time. Patient and/or jb4 family updated on plan of care and expected duration. Pain level reassessed. Patient is alert, oriented x 3, equal unlabored respirations, skin warm/dry/pink. 21:30 Reassessment: Patient appears in no apparent distress at this time. Patient and/or jb4 family updated on plan of care and expected duration. Pain level reassessed. Patient is alert, oriented x 3, equal unlabored respirations, skin warm/dry/pink. 22:30 Reassessment: Patient appears in no apparent distress at this time. Patient and/or jb4 family updated on plan of care and expected duration. Pain level reassessed. Patient is alert, oriented x 3, equal unlabored respirations, skin warm/dry/pink. 23:30 Reassessment: Patient appears in no apparent distress at this time. Patient and/or jb4 family updated on plan of care and expected duration. Pain level reassessed. Patient is alert, oriented x 3, equal unlabored respirations, skin warm/dry/pink. 12/30 00:14 Reassessment: Patient appears in no apparent distress at this time. Patient and/or jb4 family updated on plan of care and expected duration. Pain level reassessed. Patient is alert, oriented x 3, equal unlabored respirations, skin warm/dry/pink. Vital Signs: 12/29 18:19 BP 120 / 86; Pulse 132; Resp 20; Temp 98.3; Pulse Ox 100% ; Weight 92.99 kg; Height 5 iw ft. 4 in. (162.56 cm); 19:30 BP 123 / 82; Pulse 113; Resp 27; Pulse Ox 96% on R/A; jb4 20:55 BP 132 / 84; Pulse 113; Resp 23 S; Pulse Ox 100% on R/A; as6 22:45 BP 138 / 83; Pulse 114; Resp 24; Pulse Ox 100% on R/A; jb4 11 00:00 BP 125 / 77; Pulse 105; Resp 24; Pulse Ox 99% on R/A; jb4 12/29 18:19 Body Mass Index 35.19 (92.99 kg, 162.56 cm) iw ED Course: 12/29 18:14 Patient arrived in ED. as 18:22 Triage completed. iw 18:22 Jh Gatica PA is PHCP. cp 18:22 Aravind Burroughs MD is Attending Physician. cp 18:22 Arm band placed on right wrist. iw 18:38 Inserted saline lock: 20 gauge in right antecubital area, using aseptic technique. iw 19:00 Patient has correct armband on for positive identification. Placed in gown. Bed in low jb4 position. Call light in reach. Side rails up X 1. Client placed on continuous cardiac and pulse oximetry monitoring. NIBP monitoring applied. 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 19:02 XRAY Chest (1 view) In Process Unspecified. EDMS 19:08 Timbo Cotton, ESTRELLA is Primary Nurse. as6 22:04 CT Chest For PE Angio In Process Unspecified. EDMS 11 00:07 Rico Ross MD is Referral Physician. cp 00:25 No provider procedures requiring assistance completed. IV discontinued, intact, jb4 bleeding controlled, No redness/swelling at site. Pressure dressing applied. Administered Medications: 12/29 19:00 Drug: NS 0.9% 1000 ml Route: IV; Rate: 1 bolus; Site: right antecubital; as6 19:48 Follow up: Response: No adverse reaction; IV Status: Completed infusion; IV Intake: jb4 1000ml 19:21 Drug: Ketorolac 15 mg Route: IVP; Site: right antecubital; jb4 19:48 Follow up: Response: No adverse reaction; Marked relief of symptoms jb4 23:14 Not Given (Physician Discretion; nurse ): Labetalol 10 mg IV at calculated rate once cp 23:19 Drug: Aspirin Chewable Tablet 324 mg Route: PO; jb4 12/30 00:23 Follow up: Response: No adverse reaction jb4 12/29 23:19 Drug: Metoprolol 25 mg Route: PO; jb4 12/30 00:23 Follow up: Response: No adverse reaction; Marked relief of symptoms jb4 Intake: 12/29 19:48 IV: 1000ml; Total: 1000ml. jb4 Outcome: 12/30 00:09 Discharge ordered by MD. cp 00:25 Discharged to home ambulatory. jb4 00:25 Condition: stable 00:25 Discharge instructions given to patient, Instructed on discharge instructions, follow up and referral plans. medication usage, Demonstrated understanding of instructions, follow-up care, medications, Prescriptions given X 1. 00:25 Patient left the ED. jb4 Signatures: Dispatcher [employer] EDMS Cherie Chaudhary Irene, RN RN iw Jh Gatica PA PA cp Bryson, James, RN RN jb4 Timbo Cotton RN RN as6 Corrections: (The following items were deleted from the chart) 12/29 18:24 18:19 Pulse 128bpm; Resp 20bpm; Pulse Ox 100%; Temp 98.3F; 92.99 kg; Height 5 ft. 4 iw in.; BMI: 35.1; iw
[2021-12-30 00:55] VITALS: TEMP 98.3
[2021-12-30 01:08] VITALS: BP 125/77; O2SAT 99
--- NOTE | 2021-12-31 06:33 | EKG ---
Test Date: 2021-12-29 Test Time: 18:27:55 Emissions Repair Technician: MEASUREMENT RESULTS: Intervals: Rate: 120 OH: 146 QRSD: 72 QT: 304 QTc: 429 [place]: P: 49 OH: 146 QRS: 36 T: 29 INTERPRETIVE STATEMENTS: Sinus tachycardia Otherwise normal ECG Compared to ECG 01/09/2020 23:06:15 Sinus rhythm no longer present Electronically Signed On 12-31-21 06:30:38 MANAGER EMERGENCY DEPARTMENT by Rico Ross
== END 2021-12-30 00:25 | disposition home or self-care (01) ==
LOC: ER 18:11
DX: R07.89 Other chest pain (principal); R00.2 Palpitations
CPT/HCPCS: 96361; 93005; 85025; 80048; 36415; 83735; 81025; 85379; 84484; 83880; 0240U; 71275; 71045; 96374; 99284; Q9967; J7030; 81003; 81015

== ENCOUNTER 2022-12-14 18:46 | Emergency (ER) | payer BC ==
--- NOTE | 2022-12-14 19:40 | EDPHYS ---
Physician Documentation [facility] Name: Melissa August Age: 37 yrs Sex: Female : 1985 Arrival Date: 12/14/2022 Time: 18:46 Bed IW1 Private MD: ED Physician Porfirio Ceja HPI: 12/14 19:37 This 37 yrs old Female presents to ER via Ambulatory with complaints of Wrist Pain. ec2 19:37 Patient arrives today due to concern for elbow pain into the arm. States that she has ec2 worsened pain with activity. Patient reports no trauma to the area. States that she feels like a shooting pain traveling down her pinky. Patient reports no significant medical problems. 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 - Social history:: Smoking status: Patient denies any tobacco usage or history of. ROS: 19:37 Constitutional: as per hpi ec2 Exam: 19:37 Constitutional: GEN: NAD Head: atraumatic Eyes: EOMI Ears: External ears are ec2 normal. CV: regular rate LUNGS: no respiratory distress ABD: non-distended SKIN: no evidence of rashes MSK: Left elbow without any erythema or warmth, no induration or swelling appreciated, good range of motion, tenderness to palpation over the ulnar groove with reproducible symptoms. NEURO: moves all extremities equally Vital Signs: 18:50 Pulse 98; Resp 16; Temp 98.2; Pulse Ox 97% ; Weight 99.79 kg; Height 5 ft. 4 in. ; Pain cm10 7/10; 18:52 BP 139 / 96; cm10 18:50 Body Mass Index 37.76 (99.79 kg, 162.56 cm) cm10 18:50 Pain Scale: Adult cm10 MDM: 18:49 Patient medically screened. ec2 19:37 Data reviewed: vital signs. ED course: Patient arrives today due to concern for left ec2 elbow pain radiating to the left hand. Examination remarkable for well-appearing nontoxic dividual is otherwise in no acute distress. Presentation consistent with ulnar neuropathy causing patient's shooting neuropathic pain into the hand. I instructed her on precautions and will start her on gabapentin, instructed her to follow-up PCP.. Administered Medications: No medications were administered Disposition Summary: 12/14/22 19:39 Discharge Ordered Notes: Location: Home ec2 Condition: Stable ec2 Diagnosis - Ulnar Neuropathy ec2 Discharge Instructions: - Discharge Summary Sheet ec2 - Ulnar Nerve Contusion ec2 Forms: - Medication Reconciliation Form ec2 - Thank You Letter ec2 - Antibiotic Education ec2 - Prescription Opioid Use ec2 - Patient Portal Instructions ec2 - Leadership Thank You Letter ec2 Prescriptions: - gabapentin 300 mg Oral capsule - take 1 capsule ORAL route 2 times per day; 60 capsule; Refills: 0, Product ec2 Selection Permitted Signatures: Stephanie Chaudhary, RN RN cm10 Porfirio Ceja MD MD ec2
--- NOTE | 2022-12-14 19:40 | ER ---
Nurse's Notes [facility] Name: Melissa August Age: 37 yrs Sex: Female : 1985 Arrival Date: 12/14/2022 Time: 18:46 Bed IW1 Private MD: Diagnosis: Ulnar Neuropathy Presentation: 12/14 18:50 Chief complaint: Patient states: left wrist pain. Pt states that the pain began 1 month cm10 ago and the pain has been intermittent. Pt states that the pain got worse . Coronavirus screen: Vaccine status: Patient reports being unvaccinated. Client denies travel out of the [place] in the last 14 days. Ebola Screen: Patient denies travel to an Ebola-affected area in the 21 days before illness onset. No symptoms or risks identified at this time. Initial Sepsis Screen: Does the patient meet any 2 criteria? No. Patient's initial sepsis screen is negative. Does the patient have a suspected source of infection? No. Patient's initial sepsis screen is negative. Risk Assessment: Do you want to hurt yourself or someone else? Patient reports no desire to harm self or others. Onset of symptoms was December 14, 2022. 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 - Social history:: Smoking status: Patient denies any tobacco usage or history of. Assessment: 19:43 General: Appears in no apparent distress. Pain: Complains of pain in left hand and left mb9 arm Pain does not radiate. Quality of pain is described as throbbing. Neuro: Yin Agitation-Sedation Scale (RASS): 0 - Alert and Calm Level of Consciousness is awake, alert, obeys commands, Oriented to person, place, time, situation, Appropriate for age. Cardiovascular: Patient's skin is warm and dry. Respiratory: Airway is patent Respiratory effort is even, unlabored, Respiratory pattern is regular, symmetrical. GI: No signs and/or symptoms were reported involving the gastrointestinal system. : No signs and/or symptoms were reported regarding the genitourinary system. EENT: No signs and/or symptoms were reported regarding the EENT system. Derm: Skin is pink, warm \T\ dry. Musculoskeletal: Range of motion: intact in all extremities. Vital Signs: 18:50 Pulse 98; Resp 16; Temp 98.2; Pulse Ox 97% ; Weight 99.79 kg; Height 5 ft. 4 in. ; Pain cm10 7/10; 18:52 BP 139 / 96; cm10 18:50 Body Mass Index 37.76 (99.79 kg, 162.56 cm) cm10 18:50 Pain Scale: Adult cm10 ED Course: 18:47 Patient arrived in ED. rg4 18:49 Porfirio Ceja MD is Attending Physician. ec2 18:51 Triage completed. cm10 18:52 Arm band placed on Patient placed in an exam room. cm10 19:44 No provider procedures requiring assistance completed. Patient did not have IV access mb9 during this emergency room visit. Administered Medications: No medications were administered Outcome: 19:39 Discharge ordered by . ec2 19:45 Discharged to home ambulatory, mb9 19:45 Condition: stable 19:45 Discharge instructions given to patient, Instructed on discharge instructions, follow up and referral plans. Demonstrated understanding of instructions, follow-up care, medications, Prescriptions given X 1, 19:45 Patient left the ED. mb9 Signatures: Komal King 4 Germaine Frye, RN RN mb9 Stephanie Chaudhary RN RN 10 Porfirio Ceja MD MD 2
== END 2022-12-14 19:45 | disposition home or self-care (01) ==
LOC: ER 18:46
DX: G56.22 Lesion of ulnar nerve, left upper limb (principal)